=== PATIENT | female | born 1945 | race Caucasian/White ===

== ENCOUNTER 2025-01-08 14:36 | Outpatient (CLI) | payer OTHER, SELFPAY ==
--- NOTE | ~2025-01-08 | MR_ITS ---
MRI of the left ankle Clinical history: Pain Technique: Coronal proton-density and proton-density fat-sat images, axial proton-density and proton- density fat-sat images, and sagittal proton-density and proton-density fat-sat images were acquired. Findings: Syndesmotic ligaments are intact. Anterior and posterior tibial interference, and calcaneof ibular ligament, appear intact. Deltoid ligament intact. Anterior talofibular ligament appears thinne d. There is tendinosis of the distal tibialis posterior tendon. Medial flexor tendons otherwise are inta ct. Peroneal tendons and anterior extensor tendons appear intact. There is complete rupture of the di stal Achilles tendon, with fluid-filled gap/retraction of approximately 5.2 cm. The retracted tendon edges frayed and hyperintense. No osteochondral lesion of the talar dome identified. No joint effusion seen. Bone marrow signals and joint spaces are well preserved. Plantar fascia intact. No other soft tissue mass or fluid collection seen. Impression: Complete rupture of the distal Achilles tendon, as detailed above. Tendinosis of the distal tibial posterior tendon. Reviewed, dictated and finalized at location . Impression: Complete rupture of the distal Achilles tendon, as detailed above. Tendinosis of the distal tibial posterior tendon.
== END 2025-01-08 14:37 | disposition home or self-care (01) ==
PROVIDERS: Visit Provider Orthopaedic Surgery
DX: M25.572 Pain in left ankle and joints of left foot (principal)
CPT/HCPCS: 73721

== ENCOUNTER 2025-02-24 14:58 | Outpatient (CLI) | payer OTHER, SELFPAY ==
--- OUTSIDE RECORDS SUMMARY | 2024-04-15 04:00 | XMS_ITS | Continuity of Care Document ---
Author Organization [employer] Address [address] [place] [address] Phone Care Team Providers Care Engine Dynamometer Tester Name Role Phone Kevin Cottrell MD Unavailable Unavailable Procedures Procedure Date INJECTION ANESTHETIC AND/OR STERIOD, TRANS EPIDURAL LUMB OR SACRAL,, SINGLE LEVE Triamcinolone Acetonide Injection, 10mg SURGICAL TRAY LOW OSMOLAR CONTRAST (200 TO 299 MG IODI NE) Advance Directives Directive Yes / No Effective Date File Name No Information Encounters Encounter Description Practice Location Reason(s) For Visit Diagnoses Date Provider Providers Copied on Encounter [facility], [address], [place], [place], [id number], [place] tel:[phone] [facility] No Information Simba Brown. [address] , [place], [place], [id number], [place]. tel:[phone] Referring Provider: Marty Way, [address], [place], [address]. tel:[phone] Family History Family Member Type Diagnosis Age At Onset No Information Payers Payer name Insurance type Covered republican ID Authoriza tiromie(s) HOSTING OPEN ACCESS I II III CI [id number] SOI Social History Type Description Quantity Date Captured Comments Sex Female Smoking Status No Information Chief Complaint And Reason For Visit No Information Reason For Referral Reason For Referral No Information History Of Present Illness Encounter Date Complaint History Of Prese nt Illness No Information Functional Status Date Functional Assessmen t No Information Instructions Date Instruction Additional Infor mation No Information Assessments Type Assessment Date No Information Patient Care Teams Name Effective Dates (start - stop) Status Members No Information
--- NOTE | ~2025-02-24 | MR_ITS ---
EXAMINATION: MR ankle LT wo con DATE: 02/24/2025 15:50 INDICATION: Status post Achilles tendon repair TECHNIQUE: Magnetic resonance imaging (MRI) of the left ankle was performed without intravenous contrast. Sequences included sagittal, coronal, and axial proton-density weighted fast spin echo without and with fat saturation. COMPARISON: None. FINDINGS: Medial ankle ligaments: Deep and superficial deltoid ligaments as well as the spring ligament are normal. Lateral ankle ligaments: The anterior and posterior inferior tibiofibular ligaments are normal. The calcaneofibular and posterior talofibular ligaments are normal. There is marked attenuation of the anterior talofibular ligament without surrounding edema consistent with likely chronic high-grade partial tear. Tendons: 4 anchor screws are seen at the posterior tuberosity of the calcaneus location consistent with reported history of prior Achilles tendon repair. There is recurrent complete avulsion and 4 cm proximal retraction of the Achilles tendon. Moderate tendinosis of the retracted Achilles tendon with fraying of the distal 2 cm. There is a 3 x 2.3 x 2.1 cm hematoma at the site of the avulsion. There is an additional 3 x 1.1 x 1.5 similar ovoid hematoma posterior to the retracted tendon at the level of the myotendinous junction. The peroneus longus and brevis tendons are normal. There is also a normal variant peroneus cordis tendon which inserts at the retro trochlear eminence. The tibialis anterior and extensor hallucis longus and extensor digitorum longus tendons are normal. The tibialis posterior, flexor digitorum longus and flexor hallucis longus tendons are normal. Plantar fascia: Mild thickening and mild increased signal of the proximal central component of the plantar aponeurosis. There is minimal edema-like signal change at its calcaneal origin mild edema in the underlying plantar fat pad consistent with mild plantar fasciitis. Bones/other: Bone alignment is normal. No fracture or pathologic marrow replacing process. Moderate osteoarthritis at the middle facet of the subtalar joint. Mild polyarticular osteoarthritis at the ankle joint and multiple joints the midfoot. Fluid: Small joint effusion at the left ankle and subtalar joints. Subcutaneous edema about the posterior aspect of the distal calf and ankle. IMPRESSION: 1. Recurrent complete avulsion and 4 cm proximal retraction of the Achilles tendon from the site of a prior repair at the posterior tuberosity of the calcaneus. 2. 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 3. Mild plantar fasciitis. 4. 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 Reviewed, dictated and finalized at location A. IMPRESSION: 1. Recurrent complete avulsion and 4 cm proximal retraction of the Achilles ten don from the site of a prior repair at the posterior tuberosity of the calcaneu s. 2. 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 3. Mild plantar fasciitis. 4. Polyarticular osteoarthritis, moderate severity the middle facet of the subt alar joint and otherwise mild at the ankle and multiple joints in the mid and h indfoot.
--- OUTSIDE RECORDS SUMMARY | 2025-02-24 15:14 | XMS_ITS | Encounter Summary ---
Author Organization [facility] Address [address] [place] [address] Care Team Providers Care Development Architect Name Role Phone Marty Henry MD Unavailable Leo Aguilar DO Unavailable [phone] Bayron Clayton APRN-CUSTOMER SERVICE SPECIALIST Primary Care Provider Reason for Visit * Reason Onset Date Comments MEDICATION REFILL 03/09/2023 Encounter Details Date Type Department Care Team (Late st Contact Info) Description 03/09/2023 Refill [facility] - Family Medicine [address] [place] [address] Bayron Clayton APRN-CUSTOMER SERVICE SPECIALIST [address] [place] [address] MEDICATION REFILL Social History Tobacco Use Types Packs/Day Years Used Date Smoking Tobacco: Never Smokeless Tobacco: Never Alcohol Use Standard Drinks/Week Comments Yes 0 (1 standard drink = 0.6 oz pur e alcohol) wine PHQ-2 Answer Date Recorded PHQ2 TOTAL SCORE 0 09/25/2022 Comments No Sex and Gender Information Value Date Recorded Sex Assigned at Female 12/07/2020 3:24 PM CDT Legal Sex Female 3:19 PM KILN MAINTENANCE Gender Identity Female 12/07/2020 3:24 PM CDT Sexual Orientation Straight 12/07/2020 3: 24 PM CDT documented as of this encounter Miscellaneous Notes * Telephone Encounter - Bayron Clayton APRN-CNP - 03/09/2023 4:23 PM CDT Have her schedule follow up with me. We need to change her alprazolam to something different for her anxiety as it is not safe for her to use this with Ryan. I will decrease the alprazolam to twice daily for anxiety for 2 weeks then once daily as needed for 2 weeks then start her on something different. documented in this encounter Plan of Treatment Upcoming Encounters Date Type Department Care Team (Late st Contact Info) Description 03/16/2025 10:00 AM CDT Office Visit [facility] [address] [facility], [address] [place] [address] Leo Aguilar DO [address] [facility] [address] [place] [address] documented as of this encounter Visit Diagnoses Not on filedocumented in this encounter Care Teams Development Architect Relationship Specialty Start Date End Date Bayron Clayton APRN-CNP [address] [place] [phone] PCP - General Nurse Practitioner Adult Health 09/25/22 Marty Henry MD General Surgery 10/08/17 Leo Aguilar DO [address] [facility] [address] [place] [address] Machine Maintenance Cardiac Electrophysiology 04/05/21 documented as of this encounter
--- OUTSIDE RECORDS SUMMARY | 2025-02-24 15:14 | XMS_ITS | Encounter Summary ---
Author Organization [facility] Address [address] [place] [address] Care Team Providers Care Manager Data Warehouse Name Role Phone Oj Covington MD Primary Care Provider Un available Marty Henry MD Unavailable [phone] Leo Aguilar DO Unavailable [phone] Bayron Clayton [facility] Primary Care Provider Reason for Visit * Reason Onset Date Comments MEDICATION REFILL 12/02/2014 Encounter Details Date Type Department Care Team (Latest Contact Info) Description 12/02/2014 Refill TEST MEDICATION REFILL Social History Tobacco Use Types Packs/Day Years Used Date Smoking Tobacco: Never Alcohol Use Standard Drinks/Week Comments Yes 0 (1 standard drink = 0.6 oz pur e alcohol) Comments No Sex and Gender Information Value Date Recorded Sex Assigned at Female 12/07/2020 3:24 PM CDT Legal Sex Female 3:19 PM MEN'S LOCKER ROOM ATTENDANT Gender Identity Female 12/07/2020 3:24 PM CDT Sexual Orientation Straight 12/07/2020 3: 24 PM CDT documented as of this encounter Plan of Treatment Upcoming Encounters Date Type Department Care Team (Late st Contact Info) Description 03/16/2025 10:00 AM CDT Office Visit [facility] [address] [place] [address], [address] [place] [address] Leo Aguilar DO [address] [place] [phone] documented as of this encounter Visit Diagnoses Not on filedocumented in this encounter Care Teams Manager Data Warehouse Relationship Specialty Start Date End Date Oj Covington MD PCP - General Internal Medicine 04/06/16 09/24/22 Bayron Clayton, [place] [facility]-TEXTILE CUTTING MACHINE OPERATOR [address] [place] [phone] PCP - General Nurse Practitioner Adult Health 09/25/22 Marty Henry MD General Surgery 10/08/17 Leo Aguilar DO [address] [place] [phone] Nailer Operator Cardiac Electrophysiology 04/05/21 documented as of this encounter
--- OUTSIDE RECORDS SUMMARY | 2025-02-24 15:14 | XMS_ITS | Encounter Summary ---
Author Organization [facility] Address [address] [facility] [address] [facility] [place] [address] Care Team Providers Care Clinical Provider Trainer Name Role Phone Marty Henry MD Unavailable Leo Aguilar DO Unavailable [phone] Bayron Clayton APRN-CHIN STRAP CUTTER Primary Care Provider Reason for Visit * Reason Onset Date Comments MEDICATION REFILL 11/04/2022 Encounter Details Date Type Department Care Team (Late st Contact Info) Description 11/04/2022 Refill [facility] - Family Medicine [address] [place] [address] Bayron Clayton APRN-CHIN STRAP CUTTER [address] [place] [address] MEDICATION REFILL Social History Tobacco [...] PM CDT Legal Sex Female 3:19 PM HUMAN SERVICES ASSISTANT Gender Identity Female 12/07/2020 3:24 PM CDT Sexual Orientation Straight 12/07/2020 3: 24 PM CDT documented as of this encounter Miscellaneous Notes * Telephone Encounter - Bayron Clayton APRN-CNP - 2022 11:47 AM CDT It looks like she takes this 3 times daily. I would recommend weaning off this and taking somethingthat would last longer and is better suited for manager terminal use. What are her thoughts? documented in this encounter Plan of Treatment Upcoming Encounters Date Type Department Care Team (Late st Contact Info) Description 03/16/2025 10:00 AM CDT Office Visit [facility] [address] [facility], [address] [place] [address] Leo Aguilar DO [address] [facility] [address] [place] [phone] documented as of this encounter Visit Diagnoses Not on filedocumented in this encounter Care Teams Clinical Provider Trainer Relationship Specialty Start Date End Date Bayron Clayton APRN-CNP [address] [place] [phone] PCP - General Nurse Practitioner Adult Health 09/25/22 Marty Henry MD General Surgery 10/08/17 Leo Aguilar DO [address] [facility] [address] [place] [phone] Clamp Operator Cardiac Electrophysiology 04/05/21 documented as of this encounter
--- OUTSIDE RECORDS SUMMARY | 2025-02-24 15:14 | XMS_ITS | Clinical Summary ---
Author Organization [facility] Address [address] [place] [address] Care Team Providers Care Leasing Sales Consultant Name Role Phone Hillary Page Breanne PA Unavailable [phone] Bayron Clayton NP Primary Care Provider [phone] Allergies Active Allergy Reactions Criticality Noted Date Comments Adhesive Other (See comments) 08/19/2024 Adhesive Tape-Silicones Lidocaine Anxiety Low 08/21/2013 NOVACAINE- heart racing Penicillin G Benzathine Itching Low 05/13/2020 Penicillin G Pot In Dextrose Itching Low 05/13/2020 Penicillin G Potassium Itching Low 05/13/2020 Penicillin G Potassium In D5w Itching Low 05/13/2020 Penicillin G Procaine Itching Low 12/31/2024 Penicillin G Sodium Itching Low 05/13/2020 Penicillin V Potassium Itching Low 05/13/2020 Penicillins Rash Medium 09/30/2012 Medications estradiol (ESTRACE) 0.5 mg tablet take 1 (0.5MG) by oral route every day 90 3 03/19/20 13 Active cetirizine (ZyrTEC) 10 mg capsule 10 mg. 0 0 03/19/20 13 Active calcium carbonate-vitamin D3 (CALCIUM 500 + D) 1,250mg (500mg elemental) - 200 units per tablet Act celine meloxicam (MOBIC) 15 mg tablet 05/09/20 18 Active omeprazole (PriLOSEC) 20 mg capsule 04/11/20 18 Active omega 0-qrw-whh-fish oil (FISH OIL) 60-90-500 mg capsule Take 1 tablet by mouth. Active albuterol HFA (PROVENTIL HFA,VENTOLIN HFA,PROAIR HFA) 90 mcg/actuation inhaler Inhale 2 puffs every 4 (four) hours as needed 12/16/19 Active furosemide (LASIX) 40 mg tablet Take 1 tablet (40 mg total) by mouth daily 07/10/19 23 Active sotaloL (BETAPACE) 80 mg tablet Take 1 tablet (80 mg total) by mouth daily 07/10/19 23 Active Xarelto 20 mg tablet Take 1 tablet (20 mg total) by mouth daily 07/10/19 23 Active fluocinonide (LIDEX) 0.05 % external solution Apply topically 2 (two) times a day as needed for rash (scalp) 180 mL 3 08/29/19 25 Active multivitamin (MULTIPLE VITAMINS ORAL) Take by mouth every 48 hours Active omega-3 fatty acids-fish oil 300-500 mg capsule Take 1 tablet by mouth daily Active SEMAGLUTIDE SUBQ INJECT 10 units SUBCUTANEOUSLY EVERY 7 DAYS 08/01/19 25 Active ARIPiprazole (ABILIFY) 5 mg tablet Take 1 tablet (5 mg total) by mouth daily 11/28/19 24 Active atorvastatin (LIPITOR) 40 mg tablet Take 1 tablet (40 mg total) by mouth daily 07/22/19 25 Active semaglutide (WEGOVY) 0.25 mg/0.5 mL auto-injector Inject 0.25 mg under the skin once a week 07/22/19 25 Active PARoxetine (PAXIL) 40 mg tablet Take 1 tablet (40 mg total) by mouth daily 01/29/20 24 Active ondansetron ODT (ZOFRAN-ODT) [address] ONE TABLET ON TONGUE AND allow TO DISSOLVE EVERY 8 HOURS NEEDED FOR NAUSEA Active hydrOXYzine (ATARAX) 50 mg tablet Take 1 tablet (50 mg total) by mouth nightly as needed for sleep 06/04/20 24 Active HYDROcodone-aceta minophen (NORCO) 5-325 mg per tabletIndications :Pain Take 1 tablet by mouth every 4 (four) hours as needed for pain 30 tablet 01/27/20 25 Active HYDROcodone-aceta minophen (NORCO) 5-325 mg per tabletIndications :Pain Take 1 tablet by mouth every 4 (four) hours as needed for pain 30 tablet 01/15/20 25 025 Janet scales(Reo rder) Active Problems Problem Noted Date Diagnosed Date S/P Achilles tendon repair 01/09/2025 Assessment & Plan (01/26/2025 2:04 PM CDT): Patient is doing well overall. Patient's splint was removed today in clinic and she was put into a Cam boot with wedges. Patient will remain nonweightbearing in the boot with wedges until her follow up appointment in 4 weeks. No signs of surgical site infection today. Sutures removed today in clinic and Steri-Strips were applied. Discussed with the patient the importance of keeping the surgical site clean and dry. Patient will monitor for signs of infection including purulent drainage from the surgical site, increased erythema or swelling, fever, chills and notify us if they develop any of these. Patient will follow up for 6 week postop appointment in [address] Jackson. Patient expressed understanding and agreement with the plan. These instructions were written down for her facility and sent with the patient. Assessment & Plan (01/26/2025 1:37 PM CDT): S/p repair per Dr. Jackson 01/09. NWB to [facility] for DVT prop. Pain controlled with Boyd q4h PRN. Ortho fu today. Patient has requested dcp for 01/27. She has all equipement at home. PT/OT/RN to be arranged. Assessment & Plan (01/24/2025 11:26 AM CDT): This is chronic and currently stable. She continues with physical and occupational therapy. We will continue the scripting of Boyd every 4 hours prn pain, Xarelto 20 mg daily. Assessment & Plan (01/20/2025 3:42 PM CDT): This is subacute, stable. She will follow up with Orthopedics as planned. In the interim, we will continue the scripting of Boyd. Today's labs are reviewed to her satisfaction. Assessment & Plan (01/16/2025 12:37 PM CDT): S/p repair per Dr. Jackson 01/09. NWB to [facility]. [facility] for DVT prop.Pain controlled with Boyd q4h PRN. Ortho fu as scheduled. Assessment & Plan (01/15/2025 12:43 PM CDT): This is subacute but currently stable. She reports her pain to be managed. We will continue the scripting of Boyd every 4 hours prn breakthrough pain. Consult physical and occupational therapy. Mechanical back pain 04/05/2023 Mild depression 04/05/2023 Assessment & Plan (01/15/2025 12:44 PM CDT): This is chronic and currently stable on chronic medication which includes paroxetine 40 mg daily and Abilify 5 mg daily. Since both chronic medications in her condition is stable she should not have a gradual dose reduction. This will lead to destabilization which would interfere with her ability to safely recover, restore, and return home. Mixed dyslipidemia 04/05/2023 Assessment & Plan (01/15/2025 12:44 PM CDT): This is a chronic stable condition and dietary will follow. We will continue atorvastatin 40 mg daily. Paroxysmal atrial fibrillation 04/05/2023 Assessment & Plan (01/15/2025 12:46 PM CDT): This is chronic and currently stable. We will continue to monitor serial vital signs and continue Xarelto 20 mg daily p.m.. We we will continue sotalol 80 mg daily Gastroesophageal reflux disease without esophagi tis 12/16/2019 Assessment & Plan (01/15/2025 12:45 PM CDT): We will continue omeprazole 20 mg daily. Actinic keratosis 02/22/2017 Inflamed seborrheic keratosis 07/11/2016 Anxiety 04/06/2016 Seborrheic keratosis 02/18/2015 Overview (10/05/2017): Description: Benign, reassured. 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 MOM PRN which she did receive 01/14. Could be residual. Will monitor. Status post Achilles tendon repair 01/09/2025 01/16/2025 Encounters Date Type Department Care Team Description 02/20/2025 12:00 PM CDT Office Visit [facility] [address] [place] [phone] Bayron Jackson DO S/P Achilles tendon repair (Primary Dx); Achilles tendon rupture, left, initial encounter 02/20/2025 Orders Only [facility] [address] [place] [phone] Bayron Jackson DO S/P Achilles tendon repair (Primary Dx); Achilles tendon rupture, left, initial encounter 02/20/2025 Telephone [facility] [address] [place] [phone] Bayron Jackson DO 02/18/2025 2:30 PM CDT Office Visit [facility] [address] [place] [phone] Bayron Jackson DO S/P Achilles tendon repair (Primary Dx) 01/30/2025 Telephone [facility] Post Acute Care [address] [facility] [address] [place] [phone] Bel Carson MA 01/26/2025 2:00 PM CDT Office Visit [facility] [address] [place] [phone] Hillary Page PA S/P Achilles tendon repair (Primary Dx) 01/26/2025 NH/SNF Visit [facility] Post Acute Care [address] [phone] Angelique Melendrez NP S/P Achilles tendon repair (Primary Dx); Achilles tendon rupture, left, initial encounter 01/21/2025 NH/SNF Visit [facility] Post Acute Care of [address] [phone] Marcellus Aguilar MD S/P Achilles tendon repair (Primary Dx) 01/19/2025 NH/SNF Visit [facility] Acute Care [address] [phone] Marcellus Aguilar MD S/P Achilles tendon repair (Primary Dx) 01/19/2025 Results Follow-Up [facility] [address] [phone] Marcellus Aguilar MD CBC without differential, Comprehensive metabolic panel, eGFR 01/19/2025 Orders Only [facility] [address] [place] [phone] Marcellus Aguilar MD 01/16/2025 NH/SNF Visit [facility] Post [facility] Care [address] [phone] Angelique Melendrez, ABDULAZIZ S/P Achilles tendon repair (Primary Dx); Achilles tendon rupture, left, initial encounter; Frequent bowel movements 01/15/2025 Telephone [facility] Medicine [address] [facility] [address] [place] [phone] Hillary Page PA 01/15/2025 NH/SNF Visit [facility] Post Acute Care [address] [phone] Marcellus Aguilar MD S/P Achilles tendon repair (Primary Dx); Mild depression; Mixed dyslipidemia; Paroxysmal atrial fibrillation (HCC); Gastroesophageal reflux disease without esophagitis; Type 2 diabetes mellitus without complication, without long-term current use of insulin (HCC) 01/14/2025 Orders Only [facility] [address] [place] [phone] Marcellus Aguilar MD Arthralgia, unspecified joint (Primary Dx) 01/09/2025 1:53 PM CDT Anesthesia Event [facility] OR [address] [place] [phone] Ara Kent MD Kuntz, Jaspreet Romeo MD 01/09/2025 1:30 PM CDT - 01/09/2025 3:35 PM CDT Surgery [facility] OR [address] [place] [phone] Bayron Jackson DO LEFT ACHILLES TENDON REPAIR 01/09/2025 11:35 AM CDT - 01/14/2025 6:15 PM CDT Hospital Encounter [address] [phone] Bayron Jackson DO S/P Achilles tendon repair (Primary Dx); Achilles tendon rupture, left, initial encounter Discharge Disposition: Discharge to SNF 01/08/2025 - 01/08/2025 11:59 PM CDT Hospital Encounter [facility] Outside [address] [address] Discharge Disposition: Discharge to home or self care 01/01/2025 Telephone [facility] [address] [place] [phone] Bayron Jackson DO mri auth 12/31/2024 1:21 PM CDT - 12/31/2024 11:59 PM CDT Hospital Encounter [facility] [address] [place] [phone] Acute left ankle pain Discharge Disposition: Discharge to home or self care 12/31/2024 1:00 PM CDT Office Visit [facility] [address] [place] [phone] Bayron Jackson DO Acute left ankle pain (Primary Dx); Rupture of left Achilles tendon, initial encounter from Last 3 Months Surgical History Surgery Date Site/Laterality Comments CHOLECYSTECTOMY gall bladder removed HYSTERECTOMY CYST REMOVAL left breast HEEL SPUR SURGERY Left Medical History Medical History Date Comments Other exterminator (current) drug therapy High risk medications (not anticoagulants) long-term use - q6 month ophtho checks. yearly CBC. (Added by TW Conv) Delayed emergence from general anesthesia Hypertension GERD (gastroesophageal reflux disease) Family History Medical History Relation Name Comments Colon cancer Mother Cancer, colon; Other Other 1 No family histo ry of Cervical cancer; Other Other 2 No family histo ry of Cancer, colon; Other Other 3 No family histo ry of Ovarian cancer; Relation Name Status Comments Mother Other 1 Other 2 Other 3 Social History Tobacco Use Types Packs/Day Years Used Date Smoking Tobacco: Never Alcohol Use Standard Drinks/Week Comments Yes 0 (1 standard drink = 0.6 oz pur e alcohol) [facility] Utilities Answer Date Recorded In the past 12 months has [employer], gas, oil, or water [employer] threatened to shut off services in your home? No 01/12/2025 Social Connection and Isolation Panel Answer Date Recorded In a typical week, how many times do you talk on the phone with family, friends, or neighbors? More than three times a week 01/12/2025 How often do you get togethe r with friends or relatives? More than three times a week 01/12/2025 How often do you attend chur ch or mormon services? Never 01/12/2025 Do you belong to any clubs o r organizations such as rastafari groups, unions, fraternal or athletic groups, or school groups? No 01/12/2025 How often do you attend meet ings of the clubs or organizations you belong to? Never 01/12/2025 Are you , , di vorced, , never , or living with a partner? 01/12/2025 AUDIT-C Answer Date Recorded Q1: How often do you have a drink containing alc ohol? Monthly or less 01/09/2025 Q2: How many drinks containi ng alcohol do you have on a typical day when you are drinking? 1 or 2 01/09/2025 Q3: How often do you have si x or more drinks on one occasion? Never 01/09/2025 Overall Financial Resource Strain (CARDIA) Answe r Date Recorded How hard is it for you to pa y for the very basics like food, housing, medical care, and heating? Not hard at all 01/12/2025 Hunger Vital Sign Answer Date Recorded Within the past 12 months, y ou worried that your food would run out before you got the money to buy more. Never true 01/13/20 25 Within the past 12 months, t he food you bought just didn't last and you didn't have money to get more. Never true 01/12/2025 PRAPARE - Transportation Answer Date Re corded In the past 12 months, has l ack of transportation kept you from medical appointments or from getting medications? No 12/24 In the past 12 months, has l ack of transportation kept you from meetings, work, or from getting things needed for daily living? No 01/12/2025 Housing Stability Vital Sign Answer Montrell e Recorded In the last 12 months, was t here a time when you were not able to pay the mortgage or rent on time? No 01/12/2025 In the past 12 months, how m any times have you moved where you were living? 0 01/12/2025 At any time in the past 12 m [facility], were you homeless or living in a intermediate (including now)? No 01/12/2025 Personal Safety Answer Date Recorded Have you ever been in or are you currently in a harmful physical or emotional relationship or is someone making you feel afraid or unsafe? 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 Gender Identity Not on file Sexual Orientation Not on file Obstetrics History Last Filed Vital Signs Vital Sign Reading Time Taken Comments Blood Pressure 115/54 01/26/2025 1:29 PM CDT Pulse 76 01/24/2025 11:25 AM CDT Temperature 36.9 C (98.4 F) 01/14/2025 3:05 PM CDT Respiratory Rate 14 01/24/2025 11:25 AM CDT Oxygen Saturation 97% 01/14/2025 3:05 PM CDT Inhaled Oxygen Concentration - - Weight 82.1 kg (181 lb) 02/18/2025 2:53 PM CDT Height 165.1 cm (5' 5) 02/18/2025 2:53 PM CDT Body Mass Index 30.12 02/18/2025 2:53 PM CDT Plan of Treatment Health Maintenance Due Date Last Done Comments Albumin Creatinine Ratio, Urine 1945 Depression Screening 1945 Hemoglobin A1C 1947 Hepatitis C Screening 1945 Dilated Eye Exam 1947 Foot Exam 1945 Hepatitis B Screening 11/06/1965 Well Visit 65+ 11/06/2012 Covid-19 Vaccine (2023-2 5 season) 2024 10/17/2021, 04/17/2021, 08/18/2020, Additional history exists Osteoporosis Screening-Bone Density Scan 07/06/2024 07/06/2022, 07/06/2022, 04/08/2020, Additional history exists Influenza Vaccine (#1) 2025 , 04/04/2022, 03/30/2020, Additional history exists Lipid Panel 10/24/2025 10/24/2024, 06/25, 12/25/2012 Fall Risk Assessment 01/14/2026 01/14/2025 eGFR 01/19/2026 01/19/2025, 12/24, 01/13/2025, Additional history exists DTaP/Tdap/Td Vaccine (2 - Td or Tdap) 09/25/2028 09/25/2018 Pneumococcal vaccine 65+ Completed 04/07/2019, 11/23 Zoster Vaccine Completed 07/09/2019, 02/23, 11/05/2015 Breast Cancer Screening-Mammogram Discontinued 08/22/2023, 07/06/2022, 05/04/2021, Additional history exists Medical Devices Implanted Type Area Child Protective Investigator Device Identifier Shelf Expiration Date Model / Serial / Lot [employer] Suture Knox Achilles Fibertak Speedbridge 3.9mm Biocomposite [id number] - [id number] Implanted:Qty: 1 on 01/09/2025 by Bayron Jackson DO at [facility] Left: Heel [employer] [id number] 08/22/2028 [id number] / / [id number] [employer] Swivelock C 4.75mm 19.1mm Closed Eyelet Vent Knox Suture [id number] - [id number] Implanted:Qty: 1 on 01/09/2025 by Bayron Jackson DO at [facility] Left: Heel [employer] [id number] 07/25/2028 [id number] / / [id number] [employer] Suture Knox Knotless Fibertak Resorbable [id number] - [id number] Implanted:Qty: 1 on 01/09/2025 by Bayron Jackson DO at [facility] Left: Heel [employer] [id number] 09/22/2029 [id number] / / [id number] [employer] Suture Knox Knotless Fibertak Resorbable [id number] - [id number] Implanted:Qty: 1 on 01/09/2025 by Bayron Jackson DO at [facility] Left: Heel [employer] [id number] 09/22/2029 [id number] / / [id number] [employer] Swivelock C 4.75mm 19.1mm Closed Eyelet Vent Knox Suture Ar-[id number] - [id number] Implanted:Qty: 1 on 01/09/2025 by Bayron Jackson DO at [facility] Left: Heel [employer] [id number] 07/25/2028 [id number] / / [id number] Procedures Procedure Name Priority Date/Time Associated Diagnosis Comments EGFR Routine 01/19/2025 5:56 AM CDT COMPREHENSIVE METABOLIC PANEL Routine 01/19/2025 5:56 AM CDT CBC WITHOUT DIFFERENTIAL Routine 01/19/2025 5:56 AM CDT EGFR Routine 01/14/2025 4:46 AM CDT HEMOGLOBIN AND HEMATOCRIT Routine 01/14/2025 4:46 AM CDT BASIC METABOLIC PANEL Routine 01/14/2025 4:46 AM CDT EGFR Routine 01/13/2025 6:30 AM CDT HEMOGLOBIN AND HEMATOCRIT Routine 01/13/2025 6:30 AM CDT BASIC METABOLIC PANEL Routine 01/13/2025 6:30 AM CDT EGFR Routine 01/12/2025 5:15 AM CDT HEMOGLOBIN AND HEMATOCRIT Routine 01/12/2025 5:15 AM CDT BASIC METABOLIC PANEL Routine 01/12/2025 5:15 AM CDT POCT GLUCOSE DEVICE Routine 01/11/2025 6 :39 AM CDT EGFR Routine 01/11/2025 4:19 AM CDT HEMOGLOBIN AND HEMATOCRIT Routine 01/11/2025 4:19 AM CDT BASIC METABOLIC PANEL Routine 01/11/2025 4:19 AM CDT POCT GLUCOSE DEVICE Routine 01/10/2025 1 2:20 PM CDT POCT GLUCOSE DEVICE Routine 01/10/2025 8 :15 AM CDT EGFR Routine 01/10/2025 2:20 AM CDT HEMOGLOBIN AND HEMATOCRIT Routine 01/10/2025 2:20 AM CDT BASIC METABOLIC PANEL Routine 01/10/2025 2:20 AM CDT POCT GLUCOSE DEVICE Routine 01/09/2025 8 :45 PM CDT POCT GLUCOSE DEVICE Routine 01/09/2025 6 :23 PM CDT RI AN PROCEDURE PLACEHOLDER Routine 01/09/2025 2:14 PM CDT RI AN ELECTIVE ENDOTRACHEAL AIRWAY Routine 01/09/2025 2:14 PM CDT REPAIR ACHILLES TENDON 01/09/2025 1:53 PM CDT Achilles tendon rupture, left, initial encounter MRI TRANSFER OF OUTSIDE FILMS Routine 01/08/2025 12:00 AM CDT XR ANKLE LEFT 3 OR MORE VIEWS Schedule Routine, Read Routine (OP Routine) 12/31/2024 1:28 PM CDT Acute left ankle pain XR FOOT LEFT 3 OR MORE VIEWS Schedule Routine, Read Routine (OP Routine) 12/31/2024 1:28 PM CDT Acute left ankle pain SERUM LIPID PANEL Routine 12/25/2012 8:5 0 AM CDT from Last 3 Months or Most Recently Relevant to Health Maintenance Results * (ABNORMAL) eGFR (01/19/2025 5:56 AM CDT) eGFR 48(L) >=60 mL/min/1. 73 m2 [facility] Comment: Interpretive Data Reference Interval Normal >/= 90 mL/min/1.73m2 Mildly decreased* 60 - 89 mL/min/1.73m2 Mildly to moderately decreased 45 - 59 mL/min/1.73m2 Moderately to severely decreased 30 - 44 mL/min/1.73m2 Severely decreased 15 - 29 mL/min/1.73m2 Kidney Failure < 15 mL/min/1.73m2 *Relative to young adult level Estimated glomerular filtration rate is determined by the 2020 CKD-EPI equation recommended by the National Kidney Foundation (A Unifying Approach to GFR Estimation: Recommendations of the NKF-ASK Task Force on Reassessing the Inclusion of Race in Diagnosing Kidney Disease, JASN 2020). The CKD-EPI equation should not be used for patients with unstable renal function and has not been validated in children and those over 70. Current interpretive data was last reviewed 2021. [facility], [address] [place] [address]., [id number] Blood 01/19/2025 5:56 AM CDT 01/19/2025 7:43 AM CDT us Marcellus Aguilar MD LAB BLOOD ORDERABLES Final R esult [facility] [address] [facility] Department [place] [address] * (ABNORMAL) CBC without differential (01/19/2025 5:56 AM CDT) WBC 6.57 3.80 - 9.90 K/cumm [facility] Comment:[address] [address] Hgb 10.8(L) 11.9 - 15.5 g/dL [facility] Comment:[address], [address] Hct 33.4(L) 35.6 - 45.5 % [facility] Comment:[address], [address] Plt 269 150 - 400 K/cumm [facility] Comment:[address], [address] MPV 9.7 9.1 - 12.3 fL [facility] Comment:[address] [address] RBC 3.45(L) 3.90 - 5.20 M/cumm [facility] MH Comment:[address] [address] MCV 96.8(H) 81.3 - 96.4 fL [facility] Comment:[address], [address] MCH 31.3 27.1 - 33.3 pg CERNATHANAEL MH Comment:[address] [address] MCHC 32.3 32.3 - 35.7 g/dL [facility] Comment:[address], [address] RDW CV 14.6 11.1 - 14.9 % [facility] Comment:[address], [address] RDW SD 51.9(H) 35.7 - 48.1 fL [facility] Comment:[address] [address] NRBC abs 0.00 0.00 - 0.01 K/cumm [facility] Comment:[address] [address] Blood 01/19/2025 5:56 AM CDT 01/19/2025 7:43 AM CDT Marcellus Aguilar MD LAB BLOOD ORDERABLES Final R esult [facility] [address] [facility] Department [place] [address] * (ABNORMAL) Comprehensive metabolic panel (01/19/2025 5:56 AM CDT) Sodium 140 135 - 145 mmol/L [facility] Comment:[address] [address] Potassium, pl 4.1 3.3 - 4.9 mmol/L [facility] Comment:[address] [address] Chloride 105 97 - 110 mmol/L [facility] Comment:[address] [address] CO2 25 22 - 32 mmol/L [facility] Comment:[address] [address] Anion gap 10 2 - 15 mmol/L [facility] Comment:[address] [address] BUN 23 6 - 25 mg/dL [facility] Comment:[address] [address] Creatinine 1.17(H) 0.60 - 1.10 mg/dL [facility] Comment:[address] [address] Glucose 85 70 - 199 mg/dL [facility] Comment: Interpretive Data Fasting glucose >/= 126 mg/dl is diagnostic for diabetes. Fasting is defined as no caloric intake for at least 8 hours. Fasting glucose between 100 mg/dl to 125 mg/dl is diagnostic of prediabetes. In a patient with classic symptoms of hyperglycemia or hyperglycemic crisis, a random glucose >/= 200 mg/dl is diagnostic for diabetes. In the absence of unequivocal hyperglycemia, results should be confirmed by repeat testing. The classification and Diagnosis of Diabetes Diabetes Care 2021; 46: S19-S40. Current interpretive data was last revised 2022. [facility], [address] [place]., [address] Calcium 8.8 8.5 - 10.3 mg/dL [facility] Comment:[address] [address] Bilirubin, total 0.3 0.1 - 1.2 mg/dL [facility] Comment:[address] [address] Protein, pl 6.0(L) 6.5 - 8.5 g/dL [facility] Comment:[address] [address] Albumin 3.5 3.5 - 5.0 g/dL [facility] Comment:[address] [address] Alk phos 132(H) 40 - 130 Units/L [facility] Comment:[address] [address] ALT 15 7 - 45 Units/L [facility] Comment:[address] [address] AST 33 10 - 45 Units/L [facility] Comment:[address] [address] Blood 01/19/2025 5:56 AM CDT 01/19/2025 7:43 AM CDT us Marcellus Aguilar MD LAB BLOOD ORDERABLES Final R esult [facility] [address] Department [place] [address] * (ABNORMAL) eGFR (01/14/2025 4:46 AM CDT) eGFR 46(L) >=60 mL/min/1. 73 m2 Comment: Interpretive Data Reference Interval Normal >/= 90 mL/min/1.73m2 Mildly decreased* 60 - 89 mL/min/1.73m2 Mildly to moderately decreased 45 - 59 mL/min/1.73m2 Moderately to severely decreased 30 - 44 mL/min/1.73m2 Severely decreased 15 - 29 mL/min/1.73m2 Kidney Failure < 15 mL/min/1.73m2 *Relative to young adult level Estimated glomerular filtration rate is determined by the 2020 CKD-EPI equation recommended by the National Kidney Foundation (A Unifying Approach to GFR Estimation: Recommendations of the NKF-ASK Task Force on Reassessing the Inclusion of Race in Diagnosing Kidney Disease, JASN 2020). The CKD-EPI equation should not be used for patients with unstable renal function and has not been validated in children and those over 70. Current interpretive data was last reviewed 2021. Blood 01/14/2025 4:46 AM CDT 01/14/2025 5:16 AM CDT Hillary HALL LAB BLOOD ORDERABLES Final Result Performing Organization Address City/[facility] Co de Phone Number [address] [employer] [place], [place] [id number] * (ABNORMAL) Hemoglobin and hematocrit (01/14/2025 4:46 AM CDT) Pathologist [facility] Hgb 11.7(L) 11.9 - 15.5 g/dL Hct 34.5(L) 35.6 - 45.5 % [facility] Blood 01/14/2025 4:46 AM CDT 01/14/2025 5:16 AM CDT Hillary HALL LAB BLOOD ORDERABLES Final Result Performing Organization Address City/[facility] Co de Phone Number [address] [employer] [place] [address] * (ABNORMAL) Basic metabolic panel (01/14/2025 4:46 AM CDT) Pathologist [facility] Sodium 138 135 - 145 mmol/L Potassium, pl 3.9 3.3 - 4.9 mmol/L [facility] Chloride 100 97 - 110 mmol/L [facility] CO2 27 22 - 32 mmol/L [facility] Anion gap 11 2 - 15 mmol/L [facility] BUN 25 6 - 25 mg/dL [facility] Creatinine 1.22(H) 0.60 - 1.10 mg/dL [facility] Glucose 102 70 - 199 mg/dL [facility] Comment: Interpretive Data Fasting glucose >/= 126 mg/dl is diagnostic for diabetes. Fasting is defined as no caloric intake for at least 8 hours. Fasting glucose between 100 mg/dl to 125 mg/dl is diagnostic of prediabetes. In a patient with classic symptoms of hyperglycemia or hyperglycemic crisis, a random glucose >/= 200 mg/dl is diagnostic for diabetes. In the absence of unequivocal hyperglycemia, results should be confirmed by repeat testing. The classification and Diagnosis of Diabetes Diabetes Care 202; 46: S19-S40. Current interpretive data was last revised 2022. Calcium 9.4 8.5 - 10.3 mg/dL [facility] Blood 01/14/2025 4:46 AM CDT 01/14/2025 5:16 AM CDT Hillary HALL LAB BLOOD ORDERABLES Final Result [facility] [address] [facility] Department [place] [address] * (ABNORMAL) eGFR (01/13/2025 6:30 AM CDT) eGFR 44(L) >=60 mL/min/1. 73 m2 Comment: Interpretive Data Reference Interval Normal >/= 90 mL/min/1.73m2 Mildly decreased* 60 - 89 mL/min/1.73m2 Mildly to moderately decreased 45 - 59 mL/min/1.73m2 Moderately to severely decreased 30 - 44 mL/min/1.73m2 Severely decreased 15 - 29 mL/min/1.73m2 Kidney Failure < 15 mL/min/1.73m2 *Relative to young adult level Estimated glomerular filtration rate is determined by the 2020 CKD-EPI equation recommended by the National Kidney Foundation (A Unifying Approach to GFR Estimation: Recommendations of the NKF-ASK Task Force on Reassessing the Inclusion of Race in Diagnosing Kidney Disease, JASN 2020). The CKD-EPI equation should not be used for patients with unstable renal function and has not been validated in children and those over 70. Current interpretive data was last reviewed 2021. Blood 01/13/2025 6:30 AM CDT 01/13/2025 6:57 AM CDT Hillary HALL LAB BLOOD ORDERABLES Final Result Performing Organization Address [facility] Co de Phone Number [address] [employer] [place] [address] * (ABNORMAL) Hemoglobin and hematocrit (01/13/2025 6:30 AM CDT) Pathologist [facility] Hgb 11.3(L) 11.9 - 15.5 g/dL Hct 34.6(L) 35.6 - 45.5 % [facility] Blood 01/13/2025 6:30 AM CDT 01/13/2025 6:57 AM CDT Hillary HALL LAB BLOOD ORDERABLES Final Result Performing Organization Address [facility] de Phone Number [address] [address] * (ABNORMAL) Basic metabolic panel (01/13/2025 6:30 AM CDT) [facility] Sodium 139 135 - 145 mmol/L Potassium, pl 4.0 3.3 - 4.9 mmol/L [facility] Chloride 100 97 - 110 mmol/L [facility] CO2 26 22 - 32 mmol/L [facility] Anion gap 13 2 - 15 mmol/L [facility] BUN 24 6 - 25 mg/dL [facility] Creatinine 1.25(H) 0.60 - 1.10 mg/dL [facility] Glucose 106 70 - 199 mg/dL [facility] Comment: Interpretive Data Fasting glucose >/= 126 mg/dl is diagnostic for diabetes. Fasting is defined as no caloric intake for at least 8 hours. Fasting glucose between 100 mg/dl to 125 mg/dl is diagnostic of prediabetes. In a patient with classic symptoms of hyperglycemia or hyperglycemic crisis, a random glucose >/= 200 mg/dl is diagnostic for diabetes. In the absence of unequivocal hyperglycemia, results should be confirmed by repeat testing. The classification and Diagnosis of Diabetes Diabetes Care 2021; 46: S19-S40. Current interpretive data was last revised 2022. Calcium 9.2 8.5 - 10.3 mg/dL [facility] Blood 01/13/2025 6:30 AM CDT 01/13/2025 6:57 AM CDT us Hillary HALL LAB BLOOD ORDERABLES Final Result [facility] [address] [facility] Department [place] [address] * (ABNORMAL) eGFR (01/12/2025 5:15 AM CDT) eGFR 44(L) >=60 mL/min/1. 73 m2 Comment: Interpretive Data Reference Interval Normal >/= 90 mL/min/1.73m2 Mildly decreased* 60 - 89 mL/min/1.73m2 Mildly to moderately decreased 45 - 59 mL/min/1.73m2 Moderately to severely decreased 30 - 44 mL/min/1.73m2 Severely decreased 15 - 29 mL/min/1.73m2 Kidney Failure < 15 mL/min/1.73m2 *Relative to young adult level Estimated glomerular filtration rate is determined by the 2020 CKD-EPI equation recommended by the National Kidney Foundation (A Unifying Approach to GFR Estimation: Recommendations of the NKF-ASK Task Force on Reassessing the Inclusion of Race in Diagnosing Kidney Disease, JASN 202). The CKD-EPI equation should not be used for patients with unstable renal function and has not been validated in children and those over 70. Current interpretive data was last reviewed 2021. Blood 01/12/2025 5:15 AM CDT 01/12/2025 5:24 AM CDT us Hillary HALL LAB BLOOD ORDERABLES Final Result Performing Organization Address City/[facility] Co de Phone Number [address] [address] * (ABNORMAL) Hemoglobin and hematocrit (01/12/2025 5:15 AM CDT) [facility] Hgb 11.1(L) 11.9 - 15.5 g/dL Hct 33.9(L) 35.6 - 45.5 % [facility] Blood 01/12/2025 5:15 AM CDT 01/12/2025 5:24 AM CDT Hillary HALL LAB BLOOD ORDERABLES Final Result Performing Organization Address [facility] de Phone Number [address] [address] * (ABNORMAL) Basic metabolic panel (01/12/2025 5:15 AM CDT) [facility] Sodium 140 135 - 145 mmol/L Potassium, pl 3.9 3.3 - 4.9 mmol/L [facility] Chloride 102 97 - 110 mmol/L [facility] CO2 27 22 - 32 mmol/L [facility] Anion gap 11 2 - 15 mmol/L [facility] BUN 24 6 - 25 mg/dL [facility] Creatinine 1.25(H) 0.60 - 1.10 mg/dL [facility] Glucose 95 70 - 199 mg/dL [facility] Comment: Interpretive Data Fasting glucose >/= 126 mg/dl is diagnostic for diabetes. Fasting is defined as no caloric intake for at least 8 hours. Fasting glucose between 100 mg/dl to 125 mg/dl is diagnostic of prediabetes. In a patient with classic symptoms of hyperglycemia or hyperglycemic crisis, a random glucose >/= 200 mg/dl is diagnostic for diabetes. In the absence of unequivocal hyperglycemia, results should be confirmed by repeat testing. The classification and Diagnosis of Diabetes Diabetes Care 202; 46: S19-S40. Current interpretive data was last revised 2022. Calcium 8.9 8.5 - 10.3 mg/dL [facility] Blood 01/12/2025 5:15 AM CDT 01/12/2025 5:24 AM CDT Hillary HALL LAB BLOOD ORDERABLES Final Result [address] [address] * POCT glucose (01/11/2025 6:39 AM CDT) Glucose, POC 90 70 - 199 mg/dL Glucose comment 1 RN/MD Notified [facility] Blood 01/11/2025 6:39 AM CDT 01/11/2025 6:39 AM CDT Bayron Jackson DO LAB POCT ORDERABLES - DEVICE F inal Result Performing Organization Address City/[facility] Co de Phone Number [address] [employer] [place] [address] * (ABNORMAL) eGFR (01/11/2025 4:19 AM CDT) eGFR 37(L) >=60 mL/min/1. 73 m2 Comment: Interpretive Data Reference Interval Normal >/= 90 mL/min/1.73m2 Mildly decreased* 60 - 89 mL/min/1.73m2 Mildly to moderately decreased 45 - 59 mL/min/1.73m2 Moderately to severely decreased 30 - 44 mL/min/1.73m2 Severely decreased 15 - 29 mL/min/1.73m2 Kidney Failure < 15 mL/min/1.73m2 *Relative to young adult level Estimated glomerular filtration rate is determined by the 2020 CKD-EPI equation recommended by the National Kidney Foundation (A Unifying Approach to GFR Estimation: Recommendations of the NKF-ASK Task Force on Reassessing the Inclusion of Race in Diagnosing Kidney Disease, JASN 2020). The CKD-EPI equation should not be used for patients with unstable renal function and has not been validated in children and those over 70. Current interpretive data was last reviewed 2021. Blood 01/11/2025 4:19 AM CDT 01/11/2025 4:55 AM CDT Hillary HALL LAB BLOOD ORDERABLES Final Result Performing Organization Address [facility] de Phone Number [address] [address] * (ABNORMAL) Hemoglobin and hematocrit (01/11/2025 4:19 AM CDT) Pathologist [facility] Hgb 10.1(L) 11.9 - 15.5 g/dL Hct 31.1(L) 35.6 - 45.5 % [facility] Blood 01/11/2025 4:19 AM CDT 01/11/2025 4:55 AM CDT Hillary HALL LAB BLOOD ORDERABLES Final Result Performing Organization Address [facility] Phone Number [address] [address] * (ABNORMAL) Basic metabolic panel (01/11/2025 4:19 AM CDT) [facility] Sodium 140 135 - 145 mmol/L Potassium, pl 3.9 3.3 - 4.9 mmol/L [facility] Chloride 106 97 - 110 mmol/L [facility] CO2 26 22 - 32 mmol/L [facility] Anion gap 8 2 - 15 mmol/L [facility] BUN 25 6 - 25 mg/dL [facility] Creatinine 1.45(H) 0.60 - 1.10 mg/dL [facility] Glucose 93 70 - 199 mg/dL [facility] Comment: Interpretive Data Fasting glucose >/= 126 mg/dl is diagnostic for diabetes. Fasting is defined as no caloric intake for at least 8 hours. Fasting glucose between 100 mg/dl to 125 mg/dl is diagnostic of prediabetes. In a patient with classic symptoms of hyperglycemia or hyperglycemic crisis, a random glucose >/= 200 mg/dl is diagnostic for diabetes. In the absence of unequivocal hyperglycemia, results should be confirmed by repeat testing. The classification and Diagnosis of Diabetes Diabetes Care 202; 46: S19-S40. Current interpretive data was last revised 2022. Calcium 8.4(L) 8.5 - 10.3 mg/dL [facility] Blood 01/11/2025 4:19 AM CDT 01/11/2025 4:55 AM CDT Hillary HALL LAB BLOOD ORDERABLES Final Result Performing Organization Address City/[facility]/ZIP Co de Phone Number [address] [employer] [place] [address] * POCT glucose (01/10/2025 12:20 PM CDT) Glucose, POC 133 70 - 199 mg/dL Blood 01/10/2025 12:2 0 PM CDT 01/10/2025 12:20 PM CDT [facility] LAB POCT ORDERABLES - DEVICE F inal Result Performing Organization Address [facility] de Phone Number [address] [address] * POCT glucose (01/10/2025 8:15 AM CDT) Glucose, POC 110 70 - 199 mg/dL Blood 01/10/2025 8:15 AM CDT 01/10/2025 8:15 AM CDT [facility] LAB POCT ORDERABLES - DEVICE F inal Result Performing Organization Address [facility] Co de Phone Number [address] [employer] [place] [address] * (ABNORMAL) eGFR (01/10/2025 2:20 AM CDT) eGFR 43(L) >=60 mL/min/1. 73 m2 Comment: Interpretive Data Reference Interval Normal >/= 90 mL/min/1.73m2 Mildly decreased* 60 - 89 mL/min/1.73m2 Mildly to moderately decreased 45 - 59 mL/min/1.73m2 Moderately to severely decreased 30 - 44 mL/min/1.73m2 Severely decreased 15 - 29 mL/min/1.73m2 Kidney Failure < 15 mL/min/1.73m2 *Relative to young adult level Estimated glomerular filtration rate is determined by the 2020 CKD-EPI equation recommended by the National Kidney Foundation (A Unifying Approach to GFR Estimation: Recommendations of the NKF-ASK Task Force on Reassessing the Inclusion of Race in Diagnosing Kidney Disease, JASN 2020). The CKD-EPI equation should not be used for patients with unstable renal function and has not been validated in children and those over 70. Current interpretive data was last reviewed 2021. Blood 01/10/2025 2:20 AM CDT 01/10/2025 2:51 AM CDT Hillary HALL LAB BLOOD ORDERABLES Final Result Performing Organization Address City/[facility]/ZIP Co de Phone Number [address] [employer] [place] [address] * (ABNORMAL) Hemoglobin and hematocrit (01/10/2025 2:20 AM CDT) [facility] Hgb 11.0(L) 11.9 - 15.5 g/dL Hct 34.1(L) 35.6 - 45.5 % [facility] Blood 01/10/2025 2:20 AM CDT 01/10/2025 2:51 AM CDT Hillary HALL LAB BLOOD ORDERABLES Final Result Performing Organization Address City/[facility] Co de Phone Number [address] [address] * (ABNORMAL) Basic metabolic panel (01/10/2025 2:20 AM CDT) [facility] Sodium 139 135 - 145 mmol/L Potassium, pl 4.5 3.3 - 4.9 mmol/L [facility] Chloride 106 97 - 110 mmol/L [facility] CO2 24 22 - 32 mmol/L [facility] Anion gap 9 2 - 15 mmol/L [facility] BUN 28(H) 6 - 25 mg/dL [facility] Creatinine 1.29(H) 0.60 - 1.10 mg/dL [facility] Glucose 153 70 - 199 mg/dL [facility] Comment: Interpretive Data Fasting glucose >/= 126 mg/dl is diagnostic for diabetes. Fasting is defined as no caloric intake for at least 8 hours. Fasting glucose between 100 mg/dl to 125 mg/dl is diagnostic of prediabetes. In a patient with classic symptoms of hyperglycemia or hyperglycemic crisis, a random glucose >/= 200 mg/dl is diagnostic for diabetes. In the absence of unequivocal hyperglycemia, results should be confirmed by repeat testing. The classification and Diagnosis of Diabetes Diabetes Care 2021; 46: S19-S40. Current interpretive data was last revised 2022. Calcium 9.0 8.5 - 10.3 mg/dL [facility] Blood 01/10/2025 2:20 AM CDT 01/10/2025 2:51 AM CDT Hillary HALL LAB BLOOD ORDERABLES Final Result Performing Organization Address City/[facility]/ZIP Co de Phone Number [address] [employer] [address] * POCT glucose (01/09/2025 8:45 PM CDT) Glucose, POC 170 70 - 199 mg/dL Glucose comment 1 Will Repeat Test [facility] Blood 01/09/2025 8:45 PM CDT 01/09/2025 8:45 PM CDT Bayron Jackson DO LAB POCT ORDERABLES - DEVICE F inal Result Performing Organization Address City/[facility]/ZIP Co de Phone Number [address] [employer] [place] [address] * POCT glucose (01/09/2025 6:23 PM CDT) Glucose, POC 137 70 - 199 mg/dL Glucose comment 1 RN/MD Notified [facility] Blood 01/09/2025 6:23 PM CDT 01/09/2025 6:23 PM CDT us Bayron Jackson DO LAB POCT ORDERABLES - DEVICE F inal Result [facility] [address] [facility] Department [place] [address] * RI AN ELECTIVE ENDOTRACHEAL AIRWAY, RI AN PROCEDURE PLACEHOLDER (01/09/2025 2:14 PM CDT) Narrative Lindy Meyers CRNA - 01/09/2025 2:14 PM CDT Lindy Meyers CRNA 01/09/2025 2:14 PM Airway Patient location: OR Urgency: elective Indications for airway management: anesthesia Difficult airway: no Staff: Placed by: JEFF: Lindy Meyers CRNA Emergent airway documentation: Risks and benefits discussed: yes Consent obtained: yes Consent given by: patient Airway prep: Preoxygenated: yes Patient position: sniffing Mask difficulty assessment: 1 - vent by mask Spontaneous ventilation during airway: absent Sedation level during airway: deep Final airway details: Final airway type: endotracheal airway Tube type: ETT ETT size: 7.0 mm Cuffed: yes Technique used for successful ETT placement: direct laryngoscopy Devices/Methods used in placement: intubating stylet Insertion site: oral Blade type: Maldonado Blade size: 2 Cormack-Lehane (direct): grade I - full view of glottis Cuff volume: 7 mL Cuff inflated with: air ETT to lips: 21 cm Placement verified by: auscultation and CO2 detection Airway secured with: silk tape Number of attempts: 1 us Ara Kent MD ANESTHESIA ORDERABLES Final Re sult * MRI Outside Reference (01/08/2025 12:00 AM CDT) Narrative [facility] - 01/09/2025 8:10 AM CDT This order has been auto-finalized and does not contain a result. us Provider Transcribed Order IMG MRI PROCEDURES Fi nal Result [email or web address]_MHE * XR Foot Left 3 or More Views (12/31/2024 1:28 PM CDT) Anatomical Region Laterality Modality Lower Extremities, Foot Left Computed Radiography 01/02/2025 6:18 PM CDT Narrative 01/02/2025 6:20 PM CDT EXAM DESCRIPTION: 1. XR FOOT LEFT 3 OR MORE VIEWS; 2. XR ANKLE LEFT 3 OR MORE VIEWS REASON FOR STUDY: pain Posterior ankle and heel pain since escalator hit back of ankle on 12-27-24 FINDINGS: Three views left foot and three views left ankle submitted without comparison. Minimal ankle osteoarthritis. The mortise is normal. No evidence of an ankle effusion. Moderate Achilles tendinosis is present with proximal heterotopic ossification. Achilles enthesophyte formation and a small heel spur are present. Mild midfoot osteoarthritis. Mild hallux valgus with 1st metatarsophalangeal joint osteoarthritis. IMPRESSION: 1. Moderate left Achilles tendinosis with proximal heterotopic ossification. This can be further evaluated with MRI if clinically indicated. 2. Mild left hallux valgus with 1st metatarsophalangeal joint osteoarthritis. 3. Mild left midfoot osteoarthritis. THIS IS AN ELECTRONICALLY VERIFIED FINAL REPORT 01/02/2025 6:20 PM - Electronically signed by Antony Shelton M.D. MF T: Report ID: [id number] Reading Location: [id number] Procedure Note Antony Shelton MD - 01/02/2025 EXAM DESCRIPTION: 1. XR FOOT LEFT 3 OR MORE VIEWS; 2. XR ANKLE LEFT 3 OR MORE VIEWS REASON FOR STUDY: pain Posterior ankle and heel pain since escalator hit back of ankle on 12-27-24 FINDINGS: Three views left foot and three views left ankle submittedwithout comparison. Minimal ankle osteoarthritis. The mortise is normal. No evidence of anankle effusion. Moderate Achilles tendinosis is present with proximalheterotopic ossification. Achilles enthesophyte formation and a small heel spur are present. Mild midfoot osteoarthritis. Mild hallux valgus with 1st metatarsophalangeal joint osteoarthritis. IMPRESSION: 1. Moderate left Achilles tendinosis with proximal heterotopicossification. This can be further evaluated with MRI if clinically indicated. 2. Mild left hallux valgus with 1st metatarsophalangeal jointosteoarthritis. 3. Mild left midfoot osteoarthritis. THIS IS AN ELECTRONICALLY VERIFIED FINAL REPORT 01/02/2025 6:20 PM - Electronically signed by Antony Shelton M.D. T: Report ID: [id number] Reading Location: [place] [address] us Bayron Renetta DO IMG XR PROCEDURES Final Result * XR Ankle Left 3 or More Views (12/31/2024 1:28 PM CDT) Anatomical Region Laterality Modality Lower Extremities, Ankle Left Compute d Radiography 01/02/2025 6:18 PM CDT Narrative 01/02/2025 6:20 PM CDT EXAM DESCRIPTION: 1. XR FOOT LEFT 3 OR MORE VIEWS; 2. XR ANKLE LEFT 3 OR MORE VIEWS REASON FOR STUDY: pain Posterior ankle and heel pain since escalator hit back of ankle on 12-27-24 FINDINGS: Three views left foot and three views left ankle submitted without comparison. Minimal ankle osteoarthritis. The mortise is normal. No evidence of an ankle effusion. Moderate Achilles tendinosis is present with proximal heterotopic ossification. Achilles enthesophyte formation and a small heel spur are present. Mild midfoot osteoarthritis. Mild hallux valgus with 1st metatarsophalangeal joint osteoarthritis. IMPRESSION: 1. Moderate left Achilles tendinosis with proximal heterotopic ossification. This can be further evaluated with MRI if clinically indicated. 2. Mild left hallux valgus with 1st metatarsophalangeal joint osteoarthritis. 3. Mild left midfoot osteoarthritis. THIS IS AN ELECTRONICALLY VERIFIED FINAL REPORT 01/02/2025 6:20 PM - Electronically signed by Antony Shelton M.D. T: Report ID: [id number] Reading Location: [id number] Procedure Note Antony Shelton MD - 01/02/2025 EXAM DESCRIPTION: 1. XR FOOT LEFT 3 OR MORE VIEWS; 2. XR ANKLE LEFT 3 OR MORE VIEWS REASON FOR STUDY: pain Posterior ankle and heel pain since escalator hit back of ankle on 12-27-24 FINDINGS: Three views left foot and three views left ankle submittedwithout comparison. Minimal ankle osteoarthritis. The mortise is normal. No evidence of anankle effusion. Moderate Achilles tendinosis is present with proximalheterotopic ossification. Achilles enthesophyte formation and a small heel spur are present. Mild midfoot osteoarthritis. Mild hallux valgus with 1st metatarsophalangeal joint osteoarthritis. IMPRESSION: 1. Moderate left Achilles tendinosis with proximal heterotopicossification. This can be further evaluated with MRI if clinically indicated. 2. Mild left hallux valgus with 1st metatarsophalangeal jointosteoarthritis. 3. Mild left midfoot osteoarthritis. THIS IS AN ELECTRONICALLY VERIFIED FINAL REPORT 01/02/2025 6:20 PM - Electronically signed by Antony Shelton M.D. T: Report ID: [id number] Reading Location: [place] [address] us Bayron Jackson DO IMG XR PROCEDURES Final Result * Serum lipid panel (12/25/2012 8:50 AM CDT) Cholesterol 197 0 - 200 mg/dl HISTORICAL RESULTS Comment: Interpretive Data Desirable: <200 mg/dL Borderline high: 200-239 mg/dL High: >240 mg/dL Literature Reference: National Cholesterol Education Program (NCEP) Expert Panel on Detection, Evaluation, and Treatment of High Blood Cholesterol in Adults (Adult Treatment Panel III). Circulation 2004; 110:227. Current interpretive data was last revised on 2005. Triglycerides 141 0 - 150 mg/dl HISTORICAL RESULTS Comment: Interpretive Data Desirable: < 150 mg/dL Borderline High: 150 - 199 mg/dL High: > 200 mg/dL Literature Reference: See Cholesterol Current interpretive data was last revised on 06. HDL 57 40 - 199 mg/dl HISTORICAL RESULTS Comment: Interpretive Data Less than 40 mg/dL - low; A major risk factor for heart disease. Greater than or equal to 60 mg/dL - High; considered protective of heart disease. Literature Reference: See Cholesterol Current interpretive data was last revised on 2008. LDL 112 0 - 129 mg/dl HISTORICAL RESULTS Comment: Interpretive Data Optimal: < 100 mg/dL Near Optimal: 100 - 129 mg/dL Borderline High: 130 - 159 mg/dL High: > 160 mg/dL Literature Reference: See Cholesterol Current interpretive data was last revised on 06. Non-HDL cholesterol, calculated 140 mg/dl HISTORICAL RESULTS Comment: Interpretive Data When triglycerides are >200 mg/dL, non-HDL C is a secondary target of therapy, with a goal 30 mg/dL higher than the identified LDL-C goal. Reference: See Cholesterol Reference. Current interpretive data was last revised 2012. Serum 12/25/2012 8:50 AM CDT Narrative HISTORICAL RESULTS - 12/25/2012 9:54 AM CDT LAB Frequency Standing Order? No Expiration Date: Obi Aponte MD LAB BLOOD ORDERABLES Lissa pedroza Result HISTORICAL RESULTS from Last 3 Months or Most Recently Relevant to Health Maintenance Insurance [facility] [id number] [facility] [id number] Care Teams Leasing Sales Consultant Relationship Specialty Start Date End Date Bayron Clayton NP [address] [place] [address] PCP - General Nurse Practitioner 01/26/25 Hillary Page PA [address] [facility] [place] [address] Orthopedic Surgery 01/09/25
--- OUTSIDE RECORDS SUMMARY | 2025-02-24 15:14 | XMS_ITS | Encounter Summary ---
Author Organization [facility] Address [address] [facility] [place] [address] Care Team Providers Care Tie Puller Name Role Phone Marty Henry MD Unavailable [phone] Leo Aguilar DO Unavailable [phone] Bayron Clayton SENIOR JAVA UI DEVELOPER-CROSSING GUARD Primary Care Provider Reason for Visit * Reason Onset Date Comments MEDICATION REFILL 10/13/2022 Encounter Details Date Type Department Care Team (Late st Contact Info) Description 10/13/2022 Refill [facility] Medical [facility] - Family Medicine [address] [place] [address] Oj Covington MD MEDICATION REFILL Social History Tobacco Use Types [...] PM CDT Legal Sex Female 3:19 PM DEVOPS ARCHITECT Gender Identity Female 12/07/2020 3:24 PM CDT Sexual Orientation Straight 12/07/2020 3: 24 PM CDT COVID-19 Exposure Response Date Recorded In the last 10 days, have greg u been in contact with someone who was confirmed or suspected to have Coronavirus/COVID-19? No / Unsure 09/25/2022 2:14 PM CDT documented as of this encounter Miscellaneous Notes * Telephone Encounter - Kim Arenas RN - 10/18/2022 3:55 PM CDT Pt notified paper script available for tile picker. * Telephone Encounter - Bayron Clayton APRN-CNP - 10/18/2022 2:59 PM CDT She will need to come to the the office to tile picker her Rx. documented in this encounter Plan of Treatment Upcoming Encounters Date Type Department Care Team (Late st Contact Info) Description 03/16/2025 10:00 AM CDT Office Visit [facility] Heart & Vascular Care [address] [facility], [address] [place] [address] Leo Aguilar DO [address] [facility] [address] [place] [phone] documented as of this encounter Visit Diagnoses Not on filedocumented in this encounter Care Teams Tie Puller Relationship Specialty Start Date End Date Bayron Clayton APRN-CNP [address] [place] [phone] PCP - General Nurse Practitioner Adult Health 09/25/22 Marty Henry MD General Surgery 10/08/17 Leo Aguilar DO [address] [facility] [address] [place] [address] Generating Plant Superintendent Cardiac Electrophysiology 04/05/21 documented as of this encounter
--- OUTSIDE RECORDS SUMMARY | 2025-02-24 15:14 | XMS_ITS | Encounter Summary ---
Author Organization [facility] Address [address] [facility] [place] [address] Care Team Providers Care Front Tender Name Role Phone Marty Henry MD Unavailable [phone] Leo Aguilar DO Unavailable Bayron Clayton APRN-ACADEMIC TUTOR Primary Care Provider Reason for Visit * Reason Onset Date Comments MEDICATION REFILL 05/06/2024 Encounter Details Date Type Department Care Team (Late st Contact Info) Description 05/06/2024 Refill [facility] Medical [facility] - Family Medicine [address] [place] [address] Bayron Clayton APRN-ACADEMIC TUTOR [address] [place] [address] MEDICATION REFILL Social History Tobacco Use Types Packs/Day Years Used Date Smoking Tobacco: Never Smokeless Tobacco: Never Alcohol Use Standard Drinks/Week Comments Yes 0 (1 standard drink = 0.6 oz pur e alcohol) wine PHQ-2 Answer Date Recorded Patient Health Questionnaire-2 Score 2 10/01/2023 Comments No Sex and Gender Information Value Date Recorded Sex Assigned at Female 12/07/2020 3:24 PM CDT Legal Sex Female 3:19 PM PACK OUT OPERATOR Gender Identity Female 12/07/2020 3:24 PM CDT Sexual Orientation Straight 12/07/2020 3: 24 PM CDT documented as of this encounter Miscellaneous Notes * Telephone Encounter - Mandy Ramirez RN - 05/07/2024 11:29 AM CST MEDICATION FILLED PER PROTOCOL Disposition of prescription: e-prescribed to preferred pharmacy Response to patient: None necessary OUT OPERATOR documented in this encounter Plan of Treatment Upcoming Encounters Date Type Department Care Team (Late st Contact Info) Description 03/16/2025 10:00 AM CDT Office Visit [facility] Heart & Vascular Care [address] [facility], [address] [place] [address] Leo Aguilar DO [address] [facility] [address] [place] [address] documented as of this encounter Visit Diagnoses Not on filedocumented in this encounter Care Teams Front Tender Relationship Specialty Start Date End Date Bayron Clayton, FURNACE COMBUSTION ANALYST-ACADEMIC TUTOR [address] [place] [phone] PCP - General Nurse Practitioner Adult Health 09/25/22 Marty Henry MD General Surgery 10/08/17 Leo Aguilar DO [address] [facility] [address] [place] [address] Lead Slot Technician Cardiac Electrophysiology 04/05/21 documented as of this encounter
--- OUTSIDE RECORDS SUMMARY | 2025-02-24 15:14 | XMS_ITS | Encounter Summary ---
Author Organization [facility] Address [address] [facility] [place] [address] Care Team Providers Care Bladder Tier Name Role Phone Oj Covington MD Primary Care Provider Un available Marty Henry MD Unavailable Leo Aguilar DO Unavailable Bayron Clayton OPERATIONS ADMINISTRATOR-SHELL REPRINT OPERATOR Primary Care Provider Encounter Details Date Type Department Care Team (Late st Contact Info) Description 03/27/2013 Telephone [facility] [address] [place] [address] Aidee Barton, RN Social History Tobacco Use Types Packs/Day Years Used Date Smoking Tobacco: Never Alcohol Use Standard Drinks/Week Comments Yes 0 (1 standard drink = 0.6 oz pur e alcohol) Comments No Sex and Gender Information Value Date Recorded Sex Assigned at Female 12/07/2020 3:24 PM CDT Legal Sex Female 3:19 PM LOADING SHOVEL OILER Gender Identity Female 12/07/2020 3:24 PM CDT Sexual Orientation Straight 12/07/2020 3: 24 PM CDT documented as of this encounter Plan of Treatment Upcoming Encounters Date Type Department Care Team (Late st Contact Info) Description 03/16/2025 10:00 AM CDT Office Visit [facility] Heart & Vascular Care 2 [facility] [place], [address] [place] [address] Leo Aguilar DO [address] [facility] [place] [address] [place] [address] documented as of this encounter Visit Diagnoses Not on filedocumented in this encounter Care Teams Bladder Tier Relationship Specialty Start Date End Date Oj Covington MD PCP - General Internal Medicine 04/06/16 09/24/22 Bayron Clayton APRN-SHELL REPRINT OPERATOR [address] [place] [address] PCP - General Nurse Practitioner Adult Health 09/25/22 Marty Henry MD General Surgery 10/08/17 Leo Aguilar DO [address] [facility] [place] [address] [place] [address] Spine Surgeon Cardiac Electrophysiology 04/05/21 documented as of this encounter
--- OUTSIDE RECORDS SUMMARY | 2025-02-24 15:14 | XMS_ITS | Encounter Summary ---
Author Organization [facility] Address [address] [facility] [place] [address] Care Team Providers Care Dry Box Tender Name Role Phone Oj Covington MD Primary Care Provider Un available Marty Henry MD Unavailable [phone] Leo Aguilar DO Unavailable [phone] Bayron Clayton HEALTH AND SAFETY ADVISOR-CAD DEVELOPER Primary Care Provider Reason for Visit * Reason Onset Date Comments MEDICATION REFILL 04/13/2021 Encounter Details Date Type Department Care Team (Late st Contact Info) Description 04/13/2021 Refill [facility] Medical [facility] - Family Medicine [address] [place] [address] Oj Covington MD MEDICATION REFILL Social History Tobacco Use Types Packs/Day Years Used Date Smoking Tobacco: Never Smokeless Tobacco: Never Alcohol Use Standard Drinks/Week Comments Yes 0 (1 standard drink = 0.6 oz pur e alcohol) wine PHQ-2 Answer Date Recorded PHQ2 TOTAL SCORE 0 02/18/2021 Comments No Sex and Gender Information Value Date Recorded Sex Assigned at Female 12/07/2020 3:24 PM CDT Legal Sex Female 3:19 PM FINISHING RANGE OPERATOR Gender Identity Female 12/07/2020 3:24 PM CDT Sexual Orientation Straight 12/07/2020 3: 24 PM CDT documented as of this encounter Miscellaneous Notes * Telephone Encounter - Puma Alaniz MA - 04/15/2021 6:15 PM CDT [place] 02/18/21 VARNISHER APPRENTICE 03/18/21 documented in this encounter Plan of Treatment Upcoming Encounters Date Type Department Care Team (Late st Contact Info) Description 03/16/2025 10:00 AM CDT Office Visit [facility] Heart & Vascular Care [address] [facility], [address] [place] [address] Leo Aguilar DO [address] [facility] [address] [place] [phone] documented as of this encounter Visit Diagnoses Not on filedocumented in this encounter Care Teams Dry Box Tender Relationship Specialty Start Date End Date Oj Covington MD PCP - General Internal Medicine 04/06/16 09/24/22 Bayron Clayton, HEALTH AND SAFETY ADVISOR-CAD DEVELOPER [address] [place] [phone] PCP - General Nurse Practitioner Adult Health 09/25/22 Marty Henry MD General Surgery 10/08/17 Leo Aguilar DO [address] [facility] [address] [place] [address] Pre School Manager Cardiac Electrophysiology 04/05/21 documented as of this encounter
--- OUTSIDE RECORDS SUMMARY | 2025-02-24 15:14 | XMS_ITS | Encounter Summary ---
Author Organization [facility] Address [address] [facility] [place] [address] Care Team Providers Care Repair Table Operator Name Role Phone Marty Henry MD Unavailable [phone] Leo Aguilar DO Unavailable [phone] Bayron Clayton APRN-HYDRODYNAMICS PROFESSOR Primary Care Provider Reason for Visit * Reason Comments Refill Request Encounter Details Date Type Department Care Team (Late st Contact Info) Description 12/03/2024 Refill [facility] Medical [facility] - Family Medicine [address] [place] [phone] Bayron Clayton, GRICELDAHYDRODYNAMICS PROFESSOR [address] [place] [address] Refill Request Social History Tobacco Use Types Packs/Day Years Used Date Smoking Tobacco: Never Smokeless Tobacco: Never Alcohol Use Standard Drinks/Week Comments Yes 0 (1 standard drink = 0.6 oz pur e alcohol) wine PHQ-2 Answer Date Recorded Patient Health Questionnaire-2 Score 0 10/24/2024 Comments No Sex and Gender Information Value Date Recorded Sex Assigned at Female 12/07/2020 3:24 PM CDT Legal Sex Female 3:19 PM CHIEF MEDICAL OFFICER Gender Identity Female 12/07/2020 3:24 PM CDT Sexual Orientation Straight 12/07/2020 3: 24 PM CDT documented as of this encounter Miscellaneous Notes * Telephone Encounter - Macy Patterson - 12/04/2024 10:47 AM CDT Possible duplicate order-sent to provider for approval or denial at this time. documented in this encounter Plan of Treatment Upcoming Encounters Date Type Department Care Team (Late st Contact Info) Description 03/16/2025 10:00 AM CDT Office Visit [facility] Heart & Vascular Care [address] [facility], [address] [place] [address] Leo Aguilar DO [address] [facility] [address] [place] [phone] documented as of this encounter Visit Diagnoses Diagnosis Difficulty sleeping Sleep disturbance, unspecified documented in this encounter Care Teams Repair Table Operator Relationship Specialty Start Date End Date Bayron Clayton, UNMANNED EQUIPMENT OPERATOR-HYDRODYNAMICS PROFESSOR [address] [place] [phone] PCP - General Nurse Practitioner Adult Health 09/25/22 Marty Henry MD General Surgery 10/08/17 Leo Aguilar DO [address] [facility] [address] [place] [address] Director Transportation Cardiac Electrophysiology 04/05/21 documented as of this encounter
--- OUTSIDE RECORDS SUMMARY | 2025-02-24 15:14 | XMS_ITS | Encounter Summary ---
Author Organization [facility] Address [address] [place] [address] Care Team Providers Care Director Clinical Operations Name Role Phone Oj Covington MD Primary Care Provider Un available Marty Henry MD Unavailable Leo Aguilar DO Unavailable [phone] Bayron Clayton APRNJONATHAN Primary Care Provider Reason for Visit * Reason Onset Date Comments MEDICATION REFILL 05/16/2021 Encounter Details Date Type Department Care Team (Late st Contact Info) Description 05/16/2021 Refill [facility] Medical [facility] - Family Medicine [address] [place] [address] Bayron Clayton, KEVIN-SUBCONTRACTS MANAGER [address] [place] [address] MEDICATION REFILL Social History Tobacco [...] PM CDT Legal Sex Female 3:19 PM SENIOR NET C DEVELOPER Gender Identity Female 12/07/2020 3:24 PM CDT Sexual Orientation Straight 12/07/2020 3: 24 PM CDT COVID-19 Exposure Response Date Recorded In the last month, have you been in contact with someone who was confirmed or suspected to have Coronavirus / COVID-19? No / Unsure 05/09/2021 11:58 AM SENIOR NET C DEVELOPER documented as of this encounter Plan of Treatment Upcoming Encounters Date Type Department Care Team (Late st Contact Info) Description 03/16/2025 10:00 AM CDT Office Visit [facility] Heart & Vascular Care [address] [facility], [address] [place] [address] Leo Aguilar DO [address] [facility] [address] [place] [phone] documented as of this encounter Visit Diagnoses Not on filedocumented in this encounter Care Teams Director Clinical Operations Relationship Specialty Start Date End Date Oj Covington MD PCP - General Internal Medicine 04/06/16 09/24/22 Bayron Clayton, COMPUTER DISCOVERY TEACHER-SUBCONTRACTS MANAGER [address] [place] [phone] PCP - General Nurse Practitioner Adult Health 09/25/22 Marty Henry MD General Surgery 10/08/17 Leo Aguilar DO [address] [facility] [address] [place] [address] Airflight Attendants Supervisor Cardiac Electrophysiology 04/05/21 documented as of this encounter
--- OUTSIDE RECORDS SUMMARY | 2025-02-24 15:14 | XMS_ITS | Encounter Summary ---
Author Organization [facility] Address [address] [place] [address] Care Team Providers Care Automobile Contract Clerk Name Role Phone No, Physician Primary Care Provider [phone] Hillary Page Unavailable [phone] Bayron Clayton NP Primary Care Provider [phone] Encounter Details Date Type Department Care Team (Late st Contact Info) Description 01/19/2025 Results Follow-Up [facility] Medical Group Post Acute Care [address] [address] Marcellus Aguilar MD [address] [place] [phone] CBC without differential, Comprehensive metabolic panel, eGFR Social History Tobacco Use Types Packs/Day Years Used Date Smoking Tobacco: Never Alcohol Use Standard Drinks/Week Comments Yes 0 (1 standard drink = 0.6 oz pur e alcohol) [facility] Utilities Answer Date Recorded In the past 12 months has FIGS electric, gas, oil, or water company threatened to shut off services in your [...] week 01/12/2025 How often do you attend [facility] or mu-ism services? Never 01/12/2025 Do you belong to any clubs o r organizations such as alevism groups, unions, fraternal or athletic groups, or [...] time in the past 12 m [facility], were you homeless or living in a prison (including now)? No 01/12/2025 Personal Safety Answer Date Recorded Have you ever been in or are you currently in a harmful physical or emotional relationship or is someone making you feel afraid or unsafe? Denies 01/09/2025 Comments Unknown Sex and Gender Information Value Date Recorded Sex Assigned at Not on file Legal Sex Female 2:11 AM CLERK TYPIST Gender Identity Not on file Sexual Orientation Not on file documented as of this encounter Miscellaneous Notes * Result Encounter Note - Marcellus Aguilar MD - 01/19/2025 3:11 PM CDT Mond lab reviewed, note to follow. * Result Encounter Note - Marcellus Aguilar MD - 01/19/2025 8:08 AM CDT Lab reviewed and note to follow. documented in this encounter Plan of Treatment Not on file documented as of this encounter Visit Diagnoses Not on filedocumented in this encounter Care Teams Automobile Contract Clerk Relationship Specialty Start Date End Date No, Physician PCP - General 10/02/24 01/25/25 Bayron Clayton NP [facility] [place] [phone] PCP - General Nurse Practitioner 01/26/25 Hillary Page PA [address] [facility] [address] [place] [address] [place] [id number] Orthopedic Surgery 01/09/25 documented as of this encounter
--- OUTSIDE RECORDS SUMMARY | 2025-02-24 15:14 | XMS_ITS | Encounter Summary ---
Author Organization [facility] Address [address] [facility] [place] [address] Care Team Providers Care Correction Worker Name Role Phone Oj Covington MD Primary Care Provider Un available Marty Henry MD Unavailable [phone] Leo Aguilar DO Unavailable [phone] Bayron Clayton MAIL CLERK BILLS-PATTERNMAKER Primary Care Provider Reason for Visit * Reason Onset Date Comments MEDICATION REFILL 09/07/2020 Encounter Details Date Type Department Care Team (Late st Contact Info) Description 09/07/2020 Refill [facility] - Family Medicine [address] [place] [address] Oj Covington MD MEDICATION REFILL Social History Tobacco Use Types Packs/Day Years Used Date Smoking Tobacco: Never Smokeless Tobacco: Never Alcohol Use Standard Drinks/Week Comments Yes 0 (1 standard drink = 0.6 oz pur e alcohol) wine Comments No Sex and Gender Information Value Date Recorded Sex Assigned at Female 12/07/2020 3:24 PM CDT Legal Sex Female 3:19 PM RN ORTHOPEDIC Gender Identity Female 12/07/2020 3:24 PM CDT Sexual Orientation Straight 12/07/2020 3: 24 PM CDT documented as of this encounter Plan of Treatment Upcoming Encounters Date Type Department Care Team (Late st Contact Info) Description 03/16/2025 10:00 AM CDT Office Visit [facility] Health Heart & Vascular Care [address] [facility], [address] [place] [address] Leo Aguilar DO [address] [facility] [address] [place] [address] documented as of this encounter Visit Diagnoses Not on filedocumented in this encounter Care Teams Correction Worker Relationship Specialty Start Date End Date Oj Covington MD PCP - General Internal Medicine 04/06/16 09/24/22 Bayron Clayton APRN-[facility] [address] [place] [phone] PCP - General Nurse Practitioner Adult Health 09/25/22 Marty Henry MD General Surgery 10/08/17 Leo Aguilar DO [address] [facility] [address] [place] [phone] Climate Change Risk Assessor Cardiac Electrophysiology 04/05/21 documented as of this encounter
--- OUTSIDE RECORDS SUMMARY | 2025-02-24 15:14 | XMS_ITS | Encounter Summary ---
Author Organization [facility] Address [address] [facility] [place] [address] Care Team Providers Care Pillowcase Cleaner Name Role Phone Marty Henry MD Unavailable [phone] Leo Aguilar DO Unavailable [phone] Bayron Clayton APRN-GRAIN PROCESSOR Primary Care Provider Reason for Visit * Reason Onset Date Comments MEDICATION REFILL 04/13/2023 Encounter Details Date Type Department Care Team (Late st Contact Info) Description 04/13/2023 Refill [facility] Medical [facility] - Family Medicine [address] [place] [address] Bayron Clayton APRN-GRAIN PROCESSOR [address] [place] [address] MEDICATION REFILL Social History Tobacco Use Types Packs/Day Years Used Date Smoking Tobacco: Never Smokeless Tobacco: Never Alcohol Use Standard Drinks/Week Comments Yes 0 (1 standard drink = 0.6 oz pur e alcohol) wine PHQ-2 Answer Date Recorded Patient Health Questionnaire-2 Score 2 04/03/2023 Comments No Sex and Gender Information Value Date Recorded Sex Assigned at Female 12/07/2020 3:24 PM CDT Legal Sex Female 3:19 PM THAW SHED HEATER TENDER Gender Identity Female 12/07/2020 3:24 PM CDT Sexual Orientation Straight 12/07/2020 3: 24 PM CDT documented as of this encounter Plan of Treatment Upcoming Encounters Date Type Department Care Team (Late st Contact Info) Description 03/16/2025 10:00 AM CDT Office Visit [facility] Heart & Vascular Care 2 [facility], [address] [place] [address] Leo Aguilar DO [address] [facility] [address] [place] [phone] documented as of this encounter Visit Diagnoses Not on filedocumented in this encounter Care Teams Pillowcase Cleaner Relationship Specialty Start Date End Date Bayron Clayton APRN-GRAIN PROCESSOR [address] [place] [phone] PCP - General Nurse Practitioner Adult Health 09/25/22 Marty Henry MD General Surgery 10/08/17 Leo Aguilar DO [address] [facility] [address] [place] [phone] Academic Department Chair Cardiac Electrophysiology 04/05/21 documented as of this encounter
--- OUTSIDE RECORDS SUMMARY | 2025-02-24 15:14 | XMS_ITS | Clinical Summary ---
Author Organization [facility] Address [address] [place] [address] Care Team Providers Care Ingot Buggy Operator Name Role Phone Marty Henry MD Unavailable [phone] Leo Aguilar DO Unavailable [phone] Bayron Clayton [employer] [facility] Primary Care Provider Source Comments [facility],non-owned Affiliates and Associated Physician Practices is amultiple site organization consisting of ambulatory clinics and hospital sitesin [place], [place], [place] and [place]. This disclosure is being madepursuant to the Care Everywhere program and may not contain all information available regarding this patient. Last updated 18.[facility] Allergies Active Allergy Reactions Criticality Noted Date Comments Adhesive Sensitivity 03/13/2013 Lidocaine 08/21/2013 NOVACAINE- heart racing Penicillins Rash Low 09/30/2012 Medications * Be aware that medications may not be up to date on this document. Alwaysverify current medications with the patient. calcium 500 MG TABS tablet Take 600 mg by mouth once daily. with vitamin D 4 Active Multiple Vitamins-Minera ls (MULTIVITAL PO) Take by mouth every 2 days QOD Active [place]-3 Fatty Acids (FISH OIL PO) Take 1 tablet by mouth once daily. 2000 mg 4 Active sotalol (Betapace) 80 MG tablet Take 1 (one) tablet by mouth once daily 90 tablet 3 4 Active semaglutide (Wegovy) 0.25 MG/0.5ML penIndications: Class 1 obesity due to excess calories with serious comorbidity and body mass index (BMI) of 32.0 to 32.9 in adult [The details of the medication are not available because there are pending changes by a home health clinician.] 2 mL 5 Active Additional Information Patient taking differently:0.25 mg Subcutaneous EVERY 7 DAYS,taking 0.4 mg since around late November,., Reported on 02/03/2025 Xarelto 20 MG tablet TAKE 1 (ONE) TABLET BY MOUTH DAILY WITH FOOD 90 tablet 3 5 Active furosemide (Lasix) 40 MG tablet TAKE ONE TABLET BY MOUTH EVERY DAY 90 tablet 3 5 Active ARIPiprazole (Abilify) 5 MG tabletIndicatio ns:Mild depression take 1 tablet BY MOUTH EVERY DAY 90 tablet 3 5 Active omeprazole (PriLOSEC) 20 MG capsuleIndicati ons:Gastroesoph ageal reflux disease without esophagitis TAKE ONE CAPSULE BY MOUTH DAILY BEFORE breakfast 90 capsule 3 5 Active meloxicam (Mobic) 15 MG tabletIndicatio ns:Mechanical back pain TAKE 1 TABLET BY MOUTH ONCE DAILY 90 tablet 3 5 Active PARoxetine (Paxil) 40 MG tablet TAKE ONE TABLET BY MOUTH DAILY 90 tablet 1 5 Active estradiol (Estrace) 0.5 MG tabletIndicatio ns:Post-menopau taruus atrophic vaginitis [The details of the medication are not available because there are pending changes by a home health clinician.] 90 tablet 1 5 Active Additional Information Patient taking differently:0.5 mg Oral DAILY,taking every other day, Reported on 02/03/2025 hydrOXYzine HCl (Atarax) 50 MG tabletIndicatio ns:Anxiety Take 1 (one) tablet by mouth nightly as needed Reasons: Feeling Anxious 30 tablet 5 Active hydrOXYzine HCl (Atarax) 50 MG tabletIndicatio ns:Difficulty sleeping Take 1 (one) tablet by mouth nightly as needed (difficulty sleeping) sleep 90 tablet 5 Active atorvastatin (Lipitor) 40 MG tablet TAKE ONE TABLET BY MOUTH AT BEDTIME 30 tablet 5 5 Active HYDROcodone-kishan taminophen (Tucker) 5-325 MG tablet Take 1 tablet by mouth every 4 hours as needed for Pain. 5 Active fluocinonide (Lidex) 0.05 % solution Apply 1 Dose to affected area 2 times daily as needed (rash on scalp). 4 Active Active Problems Problem Noted Date Diagnosed Date Paroxysmal atrial fibrillation 04/05/2023 Mixed dyslipidemia 04/05/2023 Mild depression 04/05/2023 Mechanical back pain 04/05/2023 Gastroesophageal reflux disease without esophagi tis 12/16/2019 Anxiety 04/06/2016 Resolved Problems Problem Noted Date Diagnosed Date Resolved Date Controlled substance agreement signed 03/27/2022 09/26/2022 Palpitation 12/16/2019 04/05/2023 Lumbar stenosis without neur ogenic claudication 07/02/2017 09/26/2022 DDD (degenerative disc disease), lumbar 09/20/2016 04/05/2023 Arthralgia 04/06/2016 09/26/2022 Generalized anxiety disorder 10/12/2015 09/20/2016 Sciatica of left side 02/08/20152022 Controlled substance agreeme nt signed 11-03-2014 11/03/2014 09/26/2022 Onychomycosis 11/03/2014 09/26/2022 Cervical spondylosis 11/03/2014 023 Benign paroxysmal positional vertigo 08/21/2013 09/26/2022 Migraine 08/21/2013 09/26/2022 Encounters Date Type Department Care Team Description 02/20/[address] [facility] Home Health [address] [place] [address] Stanley De Leon, PT CASE COMMUNICATION 02/19/2025 8:00 AM CDT Home Care Visit [facility] at Home Home Health [address] [place] [address] Swati Mesa, OT OT OASIS DISCHARGE 02/19/2025 Home Care Visit [facility] [address] [place] [address] Swati Mesa, OT CASE COMMUNICATION 02/19/2025 Home Care Visit [facility] [address] [place] [address] Swati Mesa, OT CASE COMMUNICATION 02/19/2025 Travel 02/16/2025 12:00 PM CDT Home Care Visit [facility] [address] [place] [address] Arianna Cintron COTA OTA HOME VISIT 02/16/2025 9:30 AM CDT Home Care Visit [facility] [address] [place] [address] Stanley De Leon, PT PT 30 DAY REASSESSMENT 02/16/2025 Home Care Visit [facility] [address] [place] [address] Stanley De Leon, PT CASE COMMUNICATION 02/16/2025 Travel 02/12/2025 12:15 PM CDT Home Care Visit [facility] [address] [place] [address] Jovanni Conrad, SALOON KEEPER SALOON KEEPER HOME VISIT 02/12/2025 Travel 02/11/2025 11:15 AM CDT Home Care Visit [facility] [address] [place] [address] Arianna Cintron COTA OTA HOME VISIT 02/09/2025 2:00 PM CDT Home Care Visit [facility] [address] [place] [address] Jovanni Conrad, SALOON KEEPER SALOON KEEPER HOME VISIT 02/09/2025 11:15 AM CDT Home Care Visit [facility] [address] [place] [address] Arianna Cintron COTA LUIS FELIPE HOME VISIT 02/09/2025 Travel 02/06/2025 12:00 PM CDT Home Care Visit [facility] [address] [place] [address] Tod jain, Swati Ricci, OT OT INITIAL EVALUATION 02/06/2025 Home Care Visit [facility] [address] [place] [address] Swati Mesa, OT CASE COMMUNICATION 02/06/2025 Travel 02/05/2025 9:35 AM CDT Home Care Visit [facility] [address] [place] [address] Jovanni Conrad, SALOON KEEPER SALOON KEEPER HOME VISIT 02/05/2025 Home Care Visit [facility] [address] [place] [phone] Jovanni Conrad, SALOON KEEPER CARE CONFERENCE 02/05/2025 Travel 02/05/2025 Home Care Visit [facility] [address] [place] [address] Swati Mesa, OT CASE COMMUNICATION 02/03/2025 9:00 AM CDT Home Care Visit [facility] [address] [place] [phone] Stanley De Leon, PT PT OASIS START OF CARE 02/03/2025 Home Care Visit [facility] [address] [place] [phone] Stanley De Leon, PT CASE COMMUNICATION 02/03/2025 Home Care Visit [facility] [address] [place] [phone] Stanley De Leon, PT CASE COMMUNICATION 02/03/2025 Plan of Care Documentation [facility] [address] [place] [phone] 02/03/2025 Travel 02/02/[address] [facility] Health at Home Home Health [address] [place] [phone] Stanley De Leon, PT CASE COMMUNICATION 01/30/[address] [facility] Health at Home Scheduling [address] [place] [address] Nixon Neema Rupture of left Achilles tendon, initial encounter ; S/P Achilles tendon repair 01/09/2025 Refill [facility] [address], [address] [place] [address] Leo Aguilar, DO Refill Request 01/05/2025 Refill [facility] [address] [place] [phone] Bayron Clayton, [employer] [facility] MEDICATION REFILL 12/17/2024 Orders Only [address] [place] [phone] Inga Horton, [employer] 12/11/2024 Refill [facility] [address] [place] [phone] Bayron Clayton, [employer] [facility] Refill Request 12/05/2024 Refill [facility] [address] [place] [phone] Bayron Clayton, [employer] [facility] Refill Request 12/03/2024 Refill [facility] [address] [place] [phone] Bayron Clayton, [employer] [facility] Refill Request 12/03/2024 Refill [facility] [address] [place] [phone] Bayron Clayton, [employer] [facility] Refill Request from Last 3 Months Immunizations Immunization Administration Dates Next Due COVID MODERNA 12+ yr 50mcg/0.5mL 03/28/2024,04/25 COVID MODERNA BIVALENT 12Y+ 50MCG/0.5ML 03/13/2022 Covid Moderna primary monova lent 12+ yr 0.5mL 10/17/2021,04/17/2021,08/18/2020,2020 FLU VACCINE TRI IIV3 SPLIT P F IM (FLUVIRIN) 03/20/2016 INFLUENZA VACCINE 04/04/2022,,04/17/2019,2017,04/30/2017,03/20/2016,03/07/2016 INFLUENZA VACCINE, ADJUVANTE D, QUADR. (FLUAD QUADRIVALENT; 65Y+) (AIIV4) 03/26/2023 INFLUENZA VACCINE, ADJUVANTE D, TRIV. (FLUAD TRIVALENT; 65Y+) (AIIV3) 03/28/2024 INFLUENZA VACCINE, CELL CULT URE, QUADR. (FLUCELVAX QUADRIVALENT; 6MO+), 0.5 ML (CCIIV4) 04/17/2019 INFLUENZA VACCINE, HIGH-DOSE , QUADR. (FLUZONE HIGH-DOSE QUADRIVALENT; 65Y+), 0.7 ML (HD-IIV4) 03/13/2022,03/29/2020,03/11/2018 PNEUMOCOCCAL PPSV23 04/07/2019 Pneumococcal Pcv13 Conj 12/06/2015 RSV ABRYSVO PREG OR 60y+ 0.5mL 06/15/2023 TDAP (7yrs+) 09/25/2018 ZOSTER VACCINE, LIVE 11/05/2015 Zoster Hzv Vacc Recombinant Inj Im 07/09/2019, Family History Medical History Relation Name Comments None Known Brother Cancer - Other Father melanoma Dementia Maternal Grandfather Stroke Maternal Grandmother Anxiety Disorder Mother Cancer - Other Mother appendix Hypertension Mother Kidney Disease Mother Arthritis - Rheumatoid Paternal Grandmother Hepatitis Sister Hep C Diabetes half-sister Hepatitis half-sister C Cancer - Breast Neg Hx Cancer - Ovarian Neg Hx Relation Name Status Comments Brother Alive Father Maternal Grandfather Maternal Grandmother Mother Alive Paternal Grandmother Sister half-sister Social History Tobacco Use Types Packs/Day Years Used Date Smoking Tobacco: Never Smokeless Tobacco: Never Tobacco Cessation:Counseling Given: Yes Alcohol Use Standard Drinks/Week Comments Yes 0 (1 standard drink = 0.6 oz pur e alcohol) wine OASIS D0700: Social Isolation Answer Da te Recorded Frequency of experiencing loneliness or isolatio n Never 02/19/2025 OASIS A1250: Transportation Answer Date Recorded Lack of Transportation (Medical) No 02/19/2025 Lack of Transportation (Non-Medical) No 02/19/2025 Patient Unable or Declines to Respond No 02/19/2025 OASIS B1300: Health Literacy Answer Montrell e Recorded Frequency of needing help to read materials from doctor or pharmacy Never 02/19/2025 PHQ-2 Answer Date Recorded Patient Health Questionnaire-2 Score 0 10/24/2024 Comments No Sex and Gender Information Value Date Recorded Sex Assigned at Female 12/07/2020 3:24 PM CDT Legal Sex Female 3:19 PM CRIMINAL JUSTICE PROGRAM DIRECTOR Gender Identity Female 12/07/2020 3:24 PM CDT Sexual Orientation Straight 12/07/2020 3: 24 PM CDT COVID-19 Exposure Response Date Recorded In the last 10 days, have yo u been in contact with someone who was confirmed or suspected to have Coronavirus/COVID-19? No / Unsure 02/19/2025 3:06 PM CDT Last Filed Vital Signs Vital Sign Reading Time Taken Comments Blood Pressure 114/62 02/19/2025 4:23 PM CDT Pulse 70 02/19/2025 4:23 PM CDT Temperature 36.2 C (97.1 F) 02/19/2025 4:23 PM CDT Respiratory Rate 17 02/19/2025 4:23 PM CDT Oxygen Saturation 98% 02/19/2025 4:23 PM CDT Inhaled Oxygen Concentration - - Weight 87 kg (191 lb 12.8 oz) 10/24/2024 10:32 A M CDT Height 167.6 cm (5' 6) 10/24/2024 10:32 AM CDT Body Mass Index 30.96 10/24/2024 10:32 AM CDT Plan of Treatment Upcoming Encounters Date Type Department Care Team (Late Contact Info) Description 03/16/2025 10:00 AM CDT Office Visit [facility] Heart & Vascular Care [address], [address] [place], [place] [phone] [address] DO [address] [place] [phone] Health Maintenance Due Date Last Done Comments HEPATITIS C SCREENING 11/02/1963 COVID-19 VACCINE ( season) 2025 03/28/2024, 05/07/2023, 03/13/2022, Additional history exists INFLUENZA VACCINE (#1) 2025 4, 03/26/2023, 04/04/2022, Additional history exists SCREENING FOR DIABETES 07/07/2027 5, 05/20/2024, 03/27/2022, Additional history exists DTAP/TDAP/TD VACCINES (2 - Td or Tdap) 09/25/2028 09/25/2018 PNEUMOCOCCAL VACCINE 50+ Completed 04/07/2019, 11/23 ZOSTER VACCINE Discontinued 07/09/2019, 02/23, 11/05/2015 BONE DENSITY TESTING Completed 07/06/2022, 04/08/2020, 05/07/2011 (Previously completed) Respiratory Syncytial Virus (RSV) Vaccine Pt: or over 60 yrs Completed 06/15/2023 DEPRESSION SCREENING Completed 10/24/2024, 10/01/2023, 04/09/2023, Additional history exists HEPATITIS B VACCINE Aged Out No longe r eligible based on patient's age to complete this topic HIB VACCINE Aged Out No longer eligi ble based on patient's age to complete this topic HPV VACCINE Aged Out No longer eligi ble based on patient's age to complete this topic MENINGOCOCCAL (Group B) VACCINE SHARED DECISION-MAKING Aged Out No longer eligible based on patient's age to complete this topic MENINGOCOCCAL GROUPS A/C/Y/W VACCINE Aged Out No longer eligible based on patient's age to complete this topic Procedures Procedure Name Priority Date/Time Associated Diagnosis Comments COMPREHENSIVE METABOLIC PANEL Routine 07/07/2024 10:54 AM CRIMINAL JUSTICE PROGRAM DIRECTOR Mixed dyslipidemia DEXA BONE DENSITY AXIAL SKELETON Routine 07/06/2022 1:21 PM CRIMINAL JUSTICE PROGRAM DIRECTOR Ovarian failure Post menopausal syndrome from Last 3 Months or Most Recently Relevant to Health Maintenance Results * (ABNORMAL) COMPREHENSIVE METABOLIC PANEL (07/07/2024 10:54 AM CRIMINAL JUSTICE PROGRAM DIRECTOR) Glucose 107 70 - 125 mg/dL 07/07/2024 12:52 PM CRIMINAL JUSTICE PROGRAM DIRECTOR [facility] Sodium 139 136 - 145 mmol/L 07/07/2024 12:52 PM CRIMINAL JUSTICE PROGRAM DIRECTOR [facility] Potassium 4.2 3.4 - 5.1 mmol/L 07/07/2024 12:52 PM CRIMINAL JUSTICE PROGRAM DIRECTOR [facility] Chloride 103 98 - 107 mmol/L 07/07/2024 12:52 PM CRIMINAL JUSTICE PROGRAM DIRECTOR [facility] CO2 28 22 - 29 mmol/L 07/07/2024 12:52 PM CRIMINAL JUSTICE PROGRAM DIRECTOR [facility] Calcium 9.48 8.4 - 10.2 mg/dL 07/07/2024 12:52 PM CRIMINAL JUSTICE PROGRAM DIRECTOR [facility] Anion Gap 8 6 - 16 mmol/L 07/07/2024 12:52 PM CRIMINAL JUSTICE PROGRAM DIRECTOR [facility] BUN 19.7 9.8 - 20.1 mg/dL 07/07/2024 12:52 PM CRIMINAL JUSTICE PROGRAM DIRECTOR [facility] Creatinine 1.03 0.57 - 1.11 mg/dL 07/07/2024 12:52 PM CRIMINAL JUSTICE PROGRAM DIRECTOR [facility] Alkaline Phosphatase 111 40 - 150 U/L 07/07/2024 12:52 PM CRIMINAL JUSTICE PROGRAM DIRECTOR [facility] ALT 13 <=55 U/L 07/07/2024 12:52 PM CRIMINAL JUSTICE PROGRAM DIRECTOR [facility] AST 34 5 - 34 U/L 07/07/2024 12:52 PM CRIMINAL JUSTICE PROGRAM DIRECTOR [facility] Protein Total 7.3 6.4 - 8.3 gm/dL 07/07/2024 12:52 PM CRIMINAL JUSTICE PROGRAM DIRECTOR [facility] Albumin 3.5 3.4 - 4.8 gm/dL 07/07/2024 12:[address] [facility] Globulin Total 3.8 2.6 - 4.0 gm/dL 07/07/2024 12:52 PM CRIMINAL JUSTICE PROGRAM DIRECTOR [facility] Albumin/Globulin Ratio 0.9 0.9 - 1.6 07/07/2024 12:52 PM CRIMINAL JUSTICE PROGRAM DIRECTOR [facility] Bilirubin Total 0.7 0.2 - 1.2 mg/dL 07/07/2024 12:52 PM CRIMINAL JUSTICE PROGRAM DIRECTOR [facility] eGFR 56(L) >90 mL/min/1.7 3m2 07/07/2024 12:52 PM CRIMINAL JUSTICE PROGRAM DIRECTOR [facility] Comment:The GFR result was c alculated using the updated CKD-EPI Creatinine Equation (2020). Blood BLOOD SPECIMEN / Unknown Venipuncture / Unknown 07/07/2024 10:54 AM CRIMINAL JUSTICE PROGRAM DIRECTOR 07/07/2024 10:54 AM CRIMINAL JUSTICE PROGRAM DIRECTOR us Bayron Rincon Forrest [facility] LAB - CHEMISTRY ORDERAB LES Final Result [facility] [address] * DEXA BONE DENSITY STUDY [id number] (07/06/2022 1:21 PM CRIMINAL JUSTICE PROGRAM DIRECTOR) Anatomical Region Laterality Modality Radiographic Margarita ging 07/06/2022 2:16 PM CRIMINAL JUSTICE PROGRAM DIRECTOR Narrative 07/06/2022 2:17 PM CRIMINAL JUSTICE PROGRAM DIRECTOR BONE MINERAL DENSITY STUDY INDICATION: Ovarian failure FINDINGS: The average bone mineral density from L1 to L4 is 1.618 g/cm2. T-score is 3.7 which is the standard deviations (SD) of the mean for the young adult. The Z-score is 4.8 which is the standard deviations for the mean for age matched control. The average bone mineral density of the totalmean hip is 1.131 g/cm2. T-score is 1.0. Z-score is 2.3. ASSESSMENT: The above findings represent no significant increased risk of fracture through the spine and femur. WORLD HEALTH ORGANIZATION DEFINITIONS OSTEOPENIA = -1 TO -2.5 SD BELOW T-SCORE OSTEOPOROSIS = LESS THAN -2.5 SD BELOW T-SCORE 1. No significant- < 1 SD below T score 2. Mild - 1 -2.0 SD below T-score 3. Moderate - 2 -2.5 SD below T-score 4. Significant - > 2.5 SD below T-score > Interpreting Provider: Rojelio Wells MD on 07/06/2022 2:17 PM Procedure Note Rojelio Wells MD - 07/06/2022 BONE MINERAL DENSITY STUDY INDICATION: Ovarian failure FINDINGS: The average bone mineral density from L1 to L4 is 1.618 g/cm2. T-scoreis 3.7 which is the standard deviations (SD) of the mean for the youngadult. The Z-score is 4.8 which is the standard deviations for the mean forage matched control. The average bone mineral density of the totalmean hip is 1.131 g/cm2. T-score is 1.0. Z-score is 2.3. ASSESSMENT: The above findings represent no significant increased riskof fracture through the spine and femur. WORLD HEALTH ORGANIZATION DEFINITIONS OSTEOPENIA = -1 TO -2.5 SD BELOW T-SCORE OSTEOPOROSIS = LESS THAN -2.5 SD BELOW T-SCORE 1. No significant- < 1 SD below T score 2. Mild - 1 -2.0 SD below T-score 3. Moderate - 2 -2.5 SD below T-score 4. Significant - > 2.5 SD below T-score > Interpreting Provider: Rojelio Wells MD on 07/06/2022 2:17 PM Oj Covington MD DEXA ORDERABLES Final Res ult from Last 3 Months or Most Recently Relevant to Health Maintenance Insurance [employer] [facility] Address: [facility] [id number] [place] [address] [employer] Advance Directives * FULL RESUSCITATION (Latest Code Status on File) Date Activated Date Inactivated Comments 03/25/2013 10:05 AM 03/25/2013 5:34 PM Care Teams Ingot Buggy Operator Relationship Specialty Start Date End Date Bayron Clayton, [employer] [address] [place] [phone] PCP - General Nurse Practitioner Adult Health 09/25/22 Marty Henry MD General Surgery 10/08/17 Leo Aguilar DO [address] [place] [phone] Policy Analyst Cardiac Electrophysiology 04/05/21
--- OUTSIDE RECORDS SUMMARY | 2025-02-24 15:14 | XMS_ITS | Clinical Summary ---
Author Organization [facility] Address [address] [place] [address] Care Team Providers Care Product Safety Manager Name Role Phone Bayron Clayton BRIDGE MAINTENANCE WORKER-C Primary Care Provider Leo Aguilar DO Unavailable [phone] Topher Gamez MD Unavailable [phone] Allergies Active Allergy Reactions Criticality Noted Date Comments Penicillins Rash,Unknown Low 09/30/2012 Tape Contact Dermatitis 08/19/2024 Medications ARIPiprazole (ABILIFY) 5 MG tablet Take 1 tablet (5 mg total) by mouth daily. 4 Active atorvastatin (LIPITOR) 40 MG tablet Take 1 tablet (40 mg total) by mouth nightly at bedtime. 5 Active CALCIUM OR Take 500 mg by mouth nightly. Active furosemide (LASIX) 40 MG tablet Take 1 tablet (40 mg total) by mouth daily. 5 Active hydrOXYzine (ATARAX) 50 MG tablet Take 1 tablet (50 mg total) by mouth nightly as needed for Other (sleep). 4 Active meloxicam (MOBIC) 15 MG tablet Take 1 tablet (15 mg total) by mouth daily. 5 Active MULTIPLE VITAMINS OR Take by mouth every other day. Active [place]-3 Fatty Acids (FISH OIL) 500 MG capsule Take 1 tablet by mouth daily. Active omeprazole (PRILOSEC) 20 MG capsule Take 1 capsule (20 mg total) by mouth daily. 4 Active PARoxetine (PAXIL) 40 MG tablet Take 1 tablet (40 mg total) by mouth daily. 4 Active sotalol (BETAPACE) 80 MG tablet Take 1 tablet (80 mg total) by mouth daily. 4 Active XARELTO 20 MG Tab tablet Take 1 tablet (20 mg total) by mouth daily with supper. 4 Active semaglutide 2.5 mg/mL injection (compounded) Inject 0.1 mLs (0.25 mg total) into the skin once a week. 5 Active ondansetron (ZOFRAN-ODT) 4 MG disintegrating tablet Take 1 tablet (4 mg total) by mouth every 8 (eight) hours as needed for Nausea. 5 Active HYDROcodone-acetami nophen (NORCO) 5-325 MG tabletIndications:A cute Pain < 7 Day Supply Take 1 tablet by mouth every 6 (six) hours as needed for Pain. Indications: Acute Pain < 7 Day Supply 20 tablet 5 Active Active Problems No known active problems Social History Tobacco Use Types Packs/Day Years Used Date Smoking Tobacco: Never Smokeless Tobacco: Never Tobacco Cessation:Counseling Given: Not Answered Alcohol Use Standard Drinks/Week Comments Not Currently 0 (1 standard drink = 0.6 oz pur e alcohol) Comments No Sex and Gender Information Value Date Recorded Sex Assigned at Female 08/26/2024 5:21 AM RING FACER Legal Sex Female 2:53 PM RING FACER Gender Identity Not on file Sexual Orientation Not on file Last Filed Vital Signs Vital Sign Reading Time Taken Comments Blood Pressure 105/53 08/26/2024 9:23 AM RING FACER Pulse 67 08/26/2024 9:23 AM RING FACER Temperature 36.7 C (98 F) 08/26/2024 9:23 AM RING FACER Respiratory Rate 16 08/26/2024 9:23 AM RING FACER Oxygen Saturation 94% 08/26/2024 9:23 AM RING FACER Inhaled Oxygen Concentration - - Weight 91 kg (200 lb 9.9 oz) 08/26/2024 6:20 AM RING FACER Height 167.6 cm (5' 6) 08/26/2024 6:20 AM RING FACER Body Mass Index 32.38 08/26/2024 6:20 AM RING FACER Plan of Treatment Health Maintenance Due Date Last Done Comments Hepatitis C 11/06/1963 COVID-19 Vaccine ( season) 2024 03/28/2024, 05/07/2023, 03/13/2022, Additional history exists DTaP, Tdap and Td Vaccines (2 - Td or Tdap) 09/25/2028 09/25/2018 Pneumococcal Vaccine: 50+ Years Completed 04/07/2019, 12/06/2015 Zoster Vaccines Completed 07/09/2019, 02/23, 11/05/2015 Dexa Scan (General) Completed 07/06/2022, 07/06/2022, 04/08/2020 RSV Immunization or 60+ Years Completed 06/15/2023 Meningococcal B Vaccine Aged Out No l onger eligible based on patient's age to complete this topic Meningococcal Vaccine Aged Out No eleanor leela eligible based on patient's age to complete this topic RSV Immunizations Under 20 Months Aged Out No longer eligible based on patient's age to complete this topic Insurance [facility] Care Teams Product Safety Manager Relationship Specialty Start Date End Date Bayron Clayton NP-C [address] [place] [address] PCP - General NURSE PRACTITIONER ADULT HEALTH 08/18/24 Leo Aguilar DO [address] [facility] [address] [place] [address] CARDIAC ELECTROPHYSIOLOGY 08/19/24 Topher Gamez MD [address] [address] ANESTHESIOLOGY 08/19/24
--- OUTSIDE RECORDS SUMMARY | 2025-02-24 15:14 | XMS_ITS | Encounter Summary ---
Author Organization [facility] Address [address] [place] [address] Care Team Providers Care Global Compensation Manager Name Role Phone Oj Covington MD Primary Care Provider Un available Marty Henry MD Unavailable Leo Aguilar DO Unavailable [phone] Bayron Clayton PRODUCTION LINE WORKER-HOSTAGE NEGOTIATOR Primary Care Provider Reason for Visit * Reason Onset Date Comments MEDICATION REFILL 03/17/2021 Encounter Details Date Type Department Care Team (Late st Contact Info) Description 03/17/2021 Refill [facility] - Family Medicine [address] [place] [phone] Oj Covington MD MEDICATION REFILL Social [...] PM CDT Legal Sex Female 3:19 PM COMMUNICATIONS CONSULTANT Gender Identity Female 12/07/2020 3:24 PM CDT Sexual Orientation Straight 12/07/2020 3: 24 PM CDT documented as of this encounter Plan of Treatment Upcoming Encounters Date Type Department Care Team (Late st Contact Info) Description 03/16/2025 10:00 AM CDT Office Visit [facility] [address], [address] [place] [address] Leo Aguilar DO [address] [place] [phone] documented as of this encounter Visit Diagnoses Not on filedocumented in this encounter Care Teams Global Compensation Manager Relationship Specialty Start Date End Date Oj Covington MD PCP - General Internal Medicine 04/06/16 09/24/22 Bayron Clayton APRN-HOSTAGE NEGOTIATOR [address] [place] [phone] PCP - General Nurse Practitioner Adult Health 09/25/22 Marty Henry MD General Surgery 10/08/17 Leo Aguilar DO [address] [facility] [address] [place] [phone] [employer] Cutter Cardiac Electrophysiology 04/05/21 documented as of this encounter
== END 2025-02-24 14:59 | disposition home or self-care (01) ==
PROVIDERS: Visit Provider Orthopaedic Surgery
DX: S86.092D Other specified injury of left Achilles tendon, subsequent encounter (principal); X58.XXXD Exposure to other specified factors, subsequent encounter; M72.2 Plantar fascial fibromatosis; M19.072 Primary osteoarthritis, left ankle and foot; Z98.890 Other specified postprocedural states
CPT/HCPCS: 73721